=== PATIENT | male | born 1945 | race Caucasian/White ===

== ENCOUNTER → 2017-05-14 | Outpatient (CLI) | payer BC ==
[~2017-05-14] MED LIST: CLIN300C10 PO; FEXO1TAB46 PO; GABA-113 PO
[2017-05-14 12:29] LABS: BASO % 0.2 %; BASO ABS # 0.01 K/uL (0-0.2); COMPLETE YES; EOS % 5.1 %; HEMATOCRIT 49.1 % (42-52); IG% 0.3 %; LYMPH % 26.2 %; LYMPH ABS # 1.68 K/uL (1.2-3.4); MEAN CELL VOLUME 89.1 fL (80-100); MEAN CORPUSCULAR HEMOGLOBIN 30.7 pg (25-34); MEAN CORPUSCULAR HGB CONC 34.4 g/dl (32-36); MEAN PLATELET VOLUME 10.9 fL (7.4-10.4); MONO % 9.3 %; NEUT % 58.9 %; PLATELET COUNT 228 K/uL (130-400); RED BLOOD COUNT 5.51 M/uL (4.7-6.1); WHITE BLOOD COUNT 6.42 K/uL (4.8-10.8)
[2017-05-14 12:54] LABS: AST/SGOT 16 U/L (15-37); BLOOD UREA NITROGEN 15 mg/dl (7-18); BUN/CREATININE RATIO 12.7 (10-20); CARBON DIOXIDE 27 mmol/L (21-32); CHLORIDE 107 mmol/L (98-107); CHOLESTEROL 147 mg/dl (0-200); GLUCOSE 94 mg/dl (70-99); POTASSIUM 4.2 mmol/L (3.5-5.1); SODIUM 141 mmol/L (136-145)
[2017-05-14 12:59] LABS: ALKALINE PHOSPHATASE 60 U/L (45-117); ALT/SGPT 21 U/L (12-78); CHOLESTEROL/HDL RATIO 2.1; HDL CHOLESTEROL 70 mg/dl; LDL CHOLESTEROL CALCULATED 61 mg/dl; PROSTATE SPECIFIC ANTIGEN 0.928 ng/ml (0.000-4.000); TRIGLYCERIDES 82 mg/dl (0-150); VERY LOW DENSITY LIPOPROT CALC 16 mg/dl
== END | disposition home or self-care (01) ==
LOC: C.LABBFT 07:23
PROVIDERS: ATTEND Internal Medicine
DX: E78.5 Hyperlipidemia, unspecified (principal); Z12.5 Encounter for screening for malignant neoplasm of prostate; R73.01 Impaired fasting glucose

== ENCOUNTER → 2017-12-30 | Day surgery (SDC) | payer BC ==
[2017-12-20 07:48] VITALS: Ht 177.8 cm; Wt 115.5 kg
[~2017-12-30] VITALS: Ht 177.8 cm; Wt 115.5 kg
[~2017-12-30] MED LIST changes: +ASPI15TA PO; +DOXY50CA26 PO; -FEXO1TAB46 PO; +IOPAMIDOL INJ 61% 15 ML VIAL ONE; +LIDOCAINE HCL 1% MPF 5 ML VIAL ONE; +SENNTAB23 PO; +SODIUM CHLORIDE 0.9% INJ 10 ML VIAL ONE; +XYZAL PO
--- NOTE | 2017-12-30 13:46 | History & Physical Bridge - [place] ---
H&P Re-Evaluation Bridge Note: I have examined the patient, reviewed the History & Physical and in the interval since the performance of the History & Physical I have noted the following changes of clinical significance: No changes noted
--- NOTE | 2017-12-30 14:08 | [facility] Post Operative Brief Note ---
Immediate Operative Summary Operative Date December 30, 2017. 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 Kandis CERRATO Hydrology Teacher Surgeon(s) None Estimated Blood Loss 0 Findings Consistent with Post-Op Diagnosis Specimens NA Anesthesia Type Local Disposition Disposition:
--- NOTE | 2017-12-30 14:09 | Discharge Instructions ---
Discharge Instructions Date of Service December 30, 2017. Visit Reason for Visit: Lumbar Radiculopathy, Spinal Stenosis Discharge Discharge Diagnosis / Problem: left leg pain Discharge Goals Goal(s): Decrease discomfort, Improve function Medications Stopped Medications Name(s): no anti coags Activity Recommendations Activity Limitations: resume your previous activity Anesthesia . Post Anesthesia Instructions: If you have had General Anesthesia or IV Sedation: * Do not drive today. * Resume driving when surgeon permits. * Do not make important decisions or sign legal documents today. * Call surgeon for: 1. Temperature elevations greater than 101 degrees F. 2. Uncontrollable pain. 3. Excessive bleeding. 4. Persistent nausea and vomiting. 5. Medication intolerance (nausea, vomiting or rash). * For nausea and vomiting use only clear liquids such as: tea, soda, bouillon until nausea subsides, then gradually increase diet as tolerated. * If you have any concerns or questions, call your surgeon's office. If physician is unavailable and it is an emergency, call 911 or go to the nearest emergency room. . Diet Recommendations Recommended Home Diet: resume previous diet Procedures Procedures Performed: LUMBAR EPIDURAL STEROID INJECTION Pending Studies Studies pending at discharge: no Medical Emergencies . Who to Call and When: Medical Emergencies: If at any time you feel your situation is an emergency, please call 911 immediately. . Non-Emergent Contact Non-Emergency issues call your: Specialist . . "Provider Documentation" section prepared by Francisco Anand. .
[2017-12-30 14:52] VITALS: BP 165/94; PULSE 58; TEMP 36.6; O2SAT 96
--- NOTE | 2017-12-30 15:47 | OPERATIVE REPORT ---
DATE OF OPERATION: 12/30/2017 PREOPERATIVE DIAGNOSIS: Lumbar foraminal stenosis with a left L5 radiculopathy. POSTOPERATIVE DIAGNOSIS: Lumbar foraminal stenosis with a left L5 radiculopathy. PROCEDURE: Left paramedian L5-S1 intralaminar epidural steroid injection under fluoroscopic guidance. INDICATIONS: The patient is a 72-year-old white male who underwent an epidural steroid injection in 2012 and 2014, reports the pain has returned a few months ago. He is requesting an epidural injection. He has responded favorably to the epidural injections and presents today for an injection. PHYSICAL EXAMINATION: GENERAL: Pleasant male, seated comfortably. MUSCULOSKELETAL: Lumbar paraspinal muscles were palpated and noted be nontender. He had no issues with forward flexion, extension reproduced axial back pain. He had some sciatic notch sensitivity on the left. He had normal lower extremity strength. Negative seated straight leg raises, intact sensation distally at the L4, L5, S1 dermatomes. CONSENT: Verbal and written consent was obtained from the patient. Risks and benefits were reviewed. Risks include but are not limited to epidural abscess, epidural hematoma, allergic reaction, dural puncture. The patient wishes to proceed. DESCRIPTION OF PROCEDURE: The patient was taken back to the special procedures room of [facility] where he was maintained in a prone position. Backside was cleansed with Betadine x3 and a dry sterile dressing was applied. Fluoroscope was used to identify the L5-S1 intralaminar space. Overlying skin on the left side was anesthetized with 4 mL of lidocaine 1% with a 25 gauge 1.5-inch needle. A 22 gauge 4-1/4 inch Tuohy needle was then directed down towards the intralaminar space. It was advanced under lateral fluoroscopic guidance and loss of resistance was noted at a depth of 11 cm. Isovue-300 contrast 1 mL was injected in, which indicated epidural uptake flow. He then underwent injection after negative aspiration of 40 mg Depo-Medrol and 4 mL of preservative free sodium chloride. Injection was well tolerated and reproduced a familiar pressure sensation into the buttocks and hip area. DISPOSITION: 1. The patient is taken out into the discharge recovery area where he will be discharged home once discharge criteria are met. 2. Follow up in the [facility] office in 2-4 weeks. I attest to the content of the Intraoperative Record and any orders documented therein. Any exception s are noted below.
== END | disposition home or self-care (01) ==
LOC: X.SURG 12:57
PROVIDERS: ATTEND Physical Medicine & Rehabilitation
DX: M48.061 Spinal stenosis, lumbar region without neurogenic claudication (principal); M54.16 Radiculopathy, lumbar region

== ENCOUNTER 2021-03-23 05:40 | Inpatient (IN) ==
--- NOTE | 2021-03-16 15:09 | Anesthesiology Consultation ---
Date of Service March 16, 2021 Assessment & Plan (1) Encounter for pre-operative examination: Chart Review Chart Review: Acceptable Risk for Surgery and Patient NOT seen in Pre Admission Testing History Surgery Operation Date: 03/23/21 12:50 Proposed Procedures p C4-C5 Anterior Cervical Discectomy and Fusion Autograft, Allograft, Spinal Cord Monitoring - Alfredo Soto MD Height/Weight Height: 5 ft 9 in Weight: 116.12 kg Allergies Allergy/AdvReac Type Severity Reaction Status Date / Time adhesive Allergy Unknown RASH, Verified 03/16/21 13:59 LOCAL SWELLING UNDER ADHESIVE Penicillins Allergy Unknown RASH, Verified 03/16/21 13:59 REDNESS pollen extracts Allergy Unknown ITCHY Verified 03/16/21 13:59 tapentadol Allergy Unknown rash all Verified 03/16/21 13:59 over body Dust Allergy Unknown ITCHY Uncoded 03/16/21 13:59 Medications Home Medications Medication Instructions Recorded Confirmed Last Taken levocetirizine 5 mg tablet (Xyzal) 5 mg PO QAM 06/17/19 03/16/21 02/27/21 06:00 ascorbic acid (vitamin C) 1,000 mg 1,000 mg PO QAM 12/09/20 03/16/21 02/26/21 tablet,extended release clindamycin HCl 300 mg capsule 600 mg PO UD PRN cap 12/09/20 03/16/21 Unknown gabapentin 300 mg capsule 300 mg PO TID #270 cap 12/19/20 03/16/21 02/26/21 losartan 100 mg tablet 100 mg PO QAM 02/20/21 03/16/21 02/27/21 06:00 vitamin E 400 unit tablet 400 unit PO DAILY 02/20/21 03/16/21 02/26/21 amlodipine 5 mg tablet 5 mg PO BID #180 tab 03/15/21 03/16/21 Unknown Past Medical History Medical History BPH (benign prostatic hyperplasia) Diverticulosis of colon Environmental allergies Eye problem VEIN COLLAPSE IN RT EYE (INJECTIONS PRN), LAST INJECTION 11/2020 dr alicia HTN (hypertension) Osteoarthritis Pinched nerve in neck Shingles hx of shingles --CAUSED NERVE DAMAGE IN SHOULDER (REASON FOR TAKING GABAPENTIN) Spinal stenosis s/p epidural injecton Past Family History Family History Father Amyloidosis Hypertension Brother Hypertension Sigmoid polyp Mother Stroke Other No significant family history Denies family history of Ovarian cancer Prostate cancer Myocardial infarction Breast cancer Colorectal cancer Past Surgical History Surgical History History of anesthesia reaction URINARY RETENTION WITH KAT History of arthroscopy RT KNEE History of cataract surgery BOTH EYES History of colonoscopy (03/2016) one tubular adenoma and one hyperplastic polyp, recheck in 5 years, Case History of esophagogastroduodenoscopy (EGD) History of tooth extraction History of total hip arthroplasty RT Hx of transurethral resection of prostate Social History Smoking Status: Former smoker tobacco type: cigarettes Smoking cigarettes per day: 20 Do You Dip or Chew Tobacco: No Smoking End Date: 2007 Hx Alcohol Use: Yes Alcohol type: beer alcohol intake frequency: a few times a week Hx Substance Use: No substance use type: does not use Testing Electrocardiogram Date: 03/15/21 Sinus bradycardia Otherwise normal ECG When compared with ECG of 16-JUN-2014 15:15, No significant change was found Other Testing Laboratory Tests 12/05/20 03/15/21 08:42 12:09 WBC 6.32 Hgb 15.7 Hct 45.6 Plt Count 239 Sodium 137 Potassium 4.1 Chloride 106 Carbon Dioxide 25 BUN 13 Creatinine 1.16 Glucose 97
[2021-03-23] MEDS ORDERED: ceFAZolin 2000MG 2,000 MG/15 ML SYR IV SCH (06:00)
[2021-03-23] MEDS ORDERED: LR 15ML/HR IV SCH (06:00)
[2021-03-23] MEDS ORDERED: PROPOFOL IV EMULSION 10 MG/ML 100 ML VIAL IV ONE ×3 (06:21→09:00)
[2021-03-23] MEDS ORDERED: ONDANSETRON INJ 2 MG/ML 2 ML VIAL ONE (06:34)
[2021-03-23] MEDS ORDERED: HYDROmorphone INJ 2 MG/ML SYR/VIAL ONE (06:34)
[2021-03-23] MEDS ORDERED: SUCCINYLCHOLINE CHLORIDE 20 MG/ML 10 ML VIAL IV ONE (06:34)
[2021-03-23] MEDS ORDERED: PROPOFOL IV EMULSION 10 MG/ML 20 ML VIAL IV ONE ×2 (06:34→10:16)
[2021-03-23] MEDS ORDERED: fentaNYL citrate 100 MCG/2 ML VIAL ONE ×2 (06:34→09:41)
[2021-03-23] MEDS ORDERED: DEXAMETHASONE SOD INJ 4 MG/ML VIAL ONE (06:34)
[2021-03-23] MEDS ORDERED: KETAMINE 50 MG/5 ML SYRINGE ONE (06:34)
[2021-03-23] MEDS ORDERED: MIDAZOLAM HCL 1 MG/ML 2ML VIAL ONE (06:34)
[2021-03-23] MEDS ORDERED: ACETAMINOPHEN 1000 MG/100 ML IV IV ONE (06:48)
[2021-03-23] MEDS ORDERED: ceFAZolin 2,000 MG/15 ML IV PUSH IV ONE (06:50)
--- NOTE | 2021-03-23 06:54 | History & Physical Bridge Note ---
Date of Service March 23, 2021 History & Physical Bridge Note I have examined the patient, reviewed the History & Physical and in the interval since the performance of the History & Physical I have noted the following changes of clinical significance: no changes noted New changes compared to last appointment: none Musculoskeletal: 5/5 motor strength bilateral C5-T1, L2-S1 except left C5 deltoid 2/5, biceps 4/5. Neurologic: Sensation 2/2 to light touch bilateral C5-T1, L2-S1 except left C5 1/2. Patient marked for surgery. All new questions about procedure answered. Informed consent confirmed
[2021-03-23] MEDS ORDERED: ATROPINE SULFATE 0.1 MG/ML 10ML SYR IV PRN (07:02)
[2021-03-23] MEDS ORDERED: PROMETHAZINE HCL 12.5 MG in SODIUM CHLORIDE 0.9% 50 ML IV PRN ×2 (07:02→13:12)
[2021-03-23] MEDS ORDERED: HYDROmorphone INJ 1 MG/ML SYRINGE IV PRN (07:02)
[2021-03-23] MEDS ORDERED: LABETALOL HCL IV 5 MG/ML 20ML IV PRN (07:02)
[2021-03-23] MEDS ORDERED: ONDANSETRON INJ 2 MG/ML 2 ML VIAL IV PRN ×2 (07:02→13:12)
[2021-03-23] MEDS ORDERED: GELATIN SPONGE 12-7MM ONE (07:24)
[2021-03-23] MEDS ORDERED: THROMBIN 5000 UNITS KIT ONE (07:24)
[2021-03-23] MEDS ORDERED: GLYCOPYRROLATE 0.2 MG/ML VIAL ONE (08:15)
[2021-03-23] MEDS ORDERED: FLOSEAL HEMOSTATIC MATRIX 10ML TOP ONE (10:35)
--- NOTE | 2021-03-23 11:14 | Post Operative Brief Note ---
PG Immediate Post Op with CF Date of Surgery March 23, 2021 Pre & Post Diagnosis Operation Date: 03/23/21 07:30 Pre-Op Diagnosis: left C5 cervical radiculopathy Post-Op Diagnosis: left C5 cervical radiculopathy I identified the patient and participated in the time-out.: Yes Procedure C4-C5 Anterior Cervical Discectomy and Fusion, Local Autograft, Allograft Surgeon Alfredo Soto MD Records Custodian Michele Sahu PA-C Estimated Blood Loss 25 Findings Consistent with Post-Op Diagnosis Specimens Specimen Description: none per surgeon Drains Giordano Catheter (A 16 British giordano catheter was inserted preop by Concetta Rodrigues, clear yellow urine obtained output to be montiored by Anesthesia. ) and Aaron- Wallis Drain (10 British)
--- NOTE | 2021-03-23 11:24 | XRay Report ---
XR cervical spine 2 or 3V CLINICAL HISTORY: ACDF C4-C5 COMPARISON STUDY: Cervical spine 01/13/2021. FINDINGS: 4 intraoperative lateral views of the cervical spine were submitted for review. Initial celine ges demonstrate a needle overlying the C4-C5 disc space. This is followed by C4-C5 ACDF. The hardware appears intact. A surgical sponge is noted at the prevertebral location. Nasogastric tube and endotr acheal tubes are partially visualized. IMPRESSION: Intraoperative images for C4-C5 ACDF. The hardware appears intact. ACT 112: Negative or not required by law. Electronically signed by: Law Turpin M.D. 03/23/2021 11:22 AM
--- NOTE | 2021-03-23 12:28 | Anesthesiology Progress Note ---
Date of Service March 23, 2021 Anesthesia Post Procedure Vital Signs Vital Signs: Temp Pulse Pulse Resp BP BP Pulse Ox 03/23/21 12:20 36.6 C 93 H 19 144/84 H 94 03/23/21 12:10 90 12 158/97 H 94 03/23/21 12:00 85 12 135/85 96 03/23/21 11:50 88 12 153/81 H 96 03/23/21 11:40 87 17 152/90 H 97 03/23/21 11:31 36.5 C 87 12 153/90 H 94 03/23/21 06:09 36.7 C 79 20 136/95 97 Pain Intensity Left Arm: Pain Intensity: 1 Transfer of Care Handoff Completed per policy Notes Mental Status: alert / awake / arousable Patient Amnestic to Procedure: Yes Nausea / Vomiting: adequately controlled Pain: adequately controlled Airway Patency, RR, SpO2: stable & adequate BP & HR: stable & adequate Hydration State: stable & adequate Anesthetic Complications: no major complications apparent
[2021-03-23] MEDS ORDERED: methylPREDNISolone 250 MG in SYRINGE 0 ML IV SCH (12:30)
[2021-03-23] MEDS ORDERED: LORazepam 0.5 MG TAB PO PRN (13:12)
[2021-03-23] MEDS ORDERED: NALOXONE HCL 0.4 MG/1 ML VIAL/CARP IV PRN (13:12)
[2021-03-23] MEDS ORDERED: FAMOTIDINE 20 MG TAB PO PRN (13:12)
[2021-03-23] MEDS ORDERED: SOD PHOSPHATE/SOD BIPHOSPHATE ENEMA 132 ML BTL PR PRN (13:12)
[2021-03-23] MEDS ORDERED: dexAMETHasone 8 MG in SYRINGE 0 ML IV PRN (13:12)
[2021-03-23] MEDS ORDERED: MAGNESIUM HYDROXIDE SUSP 30 ML UDC PO PRN (13:12)
[2021-03-23] MEDS ORDERED: LORazepam 0.5 MG/1 ML VIAL IV PRN (13:12)
[2021-03-23] MEDS ORDERED: ACETAMINOPHEN 1,000 MG/100 ML VIAL IV PRN (13:12)
[2021-03-23] MEDS ORDERED: HYDROmorphone INJ 0.5 MG/0.5 ML SYR IV PRN (13:12)
[2021-03-23] MEDS ORDERED: ACETAMINOPHEN 500 MG TAB PO PRN (13:12)
[2021-03-23] MEDS ORDERED: HYDROCODONE/ACETAMOPHEN 5/325MG TAB PO PRN (13:12)
[2021-03-23] MEDS ORDERED: bisacodyL 10 MG SUPP PR PRN (13:12)
[2021-03-23] MEDS ORDERED: DO NOT ADMINISTER FLU VACCINE PRN (13:12)
[2021-03-23] MEDS ORDERED: hydrOXYzine HCl 25 MG TAB PO PRN (13:12)
[2021-03-23] MEDS ORDERED: DO NOT ADMINISTER PNEUMOCOCCAL VACCINE PRN (13:12)
[2021-03-23] MEDS ORDERED: diphenhydrAMINE Capsule 25 MG CAP PO PRN (13:12)
[2021-03-23] MEDS ORDERED: METOCLOPRAMIDE HCL INJ 5 MG/ML 2 ML VIAL IV PRN (13:12)
[2021-03-23] MEDS ORDERED: ONDANSETRON 4 MG OD TAB PO PRN (13:12)
[2021-03-23] MEDS ORDERED: ALUMINUM/MAGNESIUM SUSP 30 ML UDC PO PRN (13:12)
[2021-03-23] MEDS ORDERED: RACEPINEPHRINE 2.25% NEBU SOLN 0.5 ML VIAL INH PRN (13:12)
--- NOTE | 2021-03-23 13:20 | Anesthesiology Progress Note ---
Date of Service March 23, 2021 Anesthesia Post Procedure Vital Signs Vital Signs: Temp Pulse Pulse Resp BP BP Pulse Ox 03/23/21 12:50 91 H 18 142/81 H 94 03/23/21 12:40 89 16 143/89 H 94 03/23/21 12:30 94 H 19 148/89 H 95 03/23/21 12:20 36.6 C 93 H 19 144/84 H 94 03/23/21 12:10 90 12 158/97 H 94 03/23/21 12:00 85 12 135/85 96 03/23/21 11:50 88 12 153/81 H 96 03/23/21 11:40 87 17 152/90 H 97 03/23/21 11:31 36.5 C 87 12 153/90 H 94 03/23/21 06:09 36.7 C 79 20 136/95 97 Pain Intensity Left Arm: Pain Intensity: 1 Throat: Pain Intensity: 4 Transfer of Care Handoff Completed per policy Notes Mental Status: alert / awake / arousable Patient Amnestic to Procedure: Yes Nausea / Vomiting: adequately controlled Pain: adequately controlled Airway Patency, RR, SpO2: stable & adequate BP & HR: stable & adequate Hydration State: stable & adequate Anesthetic Complications: no major complications apparent
--- NOTE | 2021-03-23 13:55 | Hospitalist Consultation ---
Date of Consultation March 23, 2021 Assessment & Plan (1) Radiculopathy, cervical region: Failing outpatient therapy patient underwent C4-5 anterior cervical discectomy and fusion on March 23, 2021 (2) Hypertension: Patient continues on amlodipine 5 twice daily and losartan for hypertensive control will watch for postoperative hypotension especially with an angiotensin receptor danny History of Present Illness Attending Physician: Alfredo Soto MD History of Present Illness Patient underwent C4-5 anterior cervical discectomy and fusion with autograft by Dr. Soto March 23, 2021. Mr. Greene is a generally healthy gentleman taking amlodipine 5 mg twice daily and losartan 100, for hypertension, antihistamines for allergic rhinitis gabapentin for neuropathy which may be influenced by his cervical spine disease. Preoperative laboratory testing appears to be stable. pt notices gradual improvement of left arm strenght which was his pre operative defecit and he has resolution of his pain Allergies Allergy/AdvReac Type Severity Reaction Status Date / Time adhesive Allergy Unknown RASH, Verified 03/23/21 06:06 LOCAL SWELLING UNDER ADHESIVE Penicillins Allergy Unknown RASH, Verified 03/23/21 06:06 REDNESS pollen extracts Allergy Unknown ITCHY Verified 03/23/21 06:06 tapentadol Allergy Unknown rash all Verified 03/23/21 06:06 over body Dust Allergy Unknown ITCHY Uncoded 03/23/21 06:06 Home Medications Medication Instructions Recorded Confirmed Type levocetirizine 5 mg tablet (Xyzal) 5 mg PO QAM 06/17/19 03/23/21 History ascorbic acid (vitamin C) 1,000 mg 1,000 mg PO QAM 12/09/20 03/23/21 History tablet,extended release clindamycin HCl 300 mg capsule 600 mg PO UD PRN cap 12/09/20 03/23/21 History gabapentin 300 mg capsule 300 mg PO TID #270 cap 12/19/20 03/23/21 Rx losartan 100 mg tablet 100 mg PO QAM 02/20/21 03/23/21 History vitamin E 400 unit tablet 400 unit PO DAILY 02/20/21 03/23/21 History amlodipine 5 mg tablet 5 mg PO BID #180 tab 03/15/21 03/23/21 Rx Patient History Medical History (Updated 03/23/21 @ 13:53 by Festus Castano MD) BPH (benign prostatic hyperplasia) Diverticulosis of colon Environmental allergies Eye problem VEIN COLLAPSE IN RT EYE (INJECTIONS PRN), LAST INJECTION 11/2020 dr alicia HTN (hypertension) Lyme disease Osteoarthritis Pinched nerve in neck Shingles hx of shingles --CAUSED NERVE DAMAGE IN SHOULDER (REASON FOR TAKING GABAPENTIN) Spinal stenosis s/p epidural injecton Surgical History History of anesthesia reaction URINARY RETENTION WITH KAT History of arthroscopy RT KNEE History of cataract surgery BOTH EYES History of colonoscopy (03/2016) one tubular adenoma and one hyperplastic polyp, recheck in 5 years, Dr Puente History of esophagogastroduodenoscopy (EGD) History of tooth extraction History of total hip arthroplasty RT Hx of transurethral resection of prostate Family History Father Amyloidosis Hypertension Brother Hypertension Sigmoid polyp Mother Stroke Other No significant family history Denies family history of Ovarian cancer Prostate cancer Myocardial infarction Breast cancer Colorectal cancer Social History Smoking Status: Former smoker Tobacco Type: Cigarettes Age Started Using Tobacco: 21; Age Quit Using Tobacco: 63; packs per day: 1; Years Smoked: 63; Cigarettes Per Day: 20; Smoking End Date: 2007; Number of Years Since Quit: 201; Second Hand Exposure: No; Do You Dip or Chew Tobacco: No; Tobacco Cessation Education Requested by Patient: No Hx Alcohol Use: Yes Alcohol type: beer Alcohol Intake Frequency: 4 or More x per/Week Alcohol Intake Frequency Comment: 1 or 2 drinks a day Hx Substance Use: No Preferred Language: Haitian Communication Ability: Effective Visual Impairment: No Limitations Hearing Ability: Normal Motion Picture Film Examiner Required: No Beliefs That Will Affect Care: None marital status: / Current Living Situation: Alone current occupational status: retired Other Information That Helps Us Care for You: No Feels Safe at Home: Yes Safety Concerns: Feels Safe At This Time Childhood Exposure to Second-Hand Smoke: No Dental Care, Regularly: Yes Physical Activity Frequency: 3-4 Times per Week Physical Activity Frequency Comment: golfing, walking 2 hours Seatbelt Use: always Sunscreen Use: Yes Assistive Devices: Glasses Review of Systems Review of Systems: Mild distress and fatigue no headache, no visual changes no speech or swallowing issues no chest pain, pressure or palpitations no shortness of breath, cough or wheezes no abdominal pain, nausea or vomiting, diarrhea or constipation no dysuria, hematuria or frequency no focal joint pain or swelling no back pain, CVA tenderness or radicular pain no bruising, bleeding or rashes focal weakness of left proximal arm no complaints of anxiety or depression.. Physical Exam Physical Exam: The patient appeared well nourished and normally developed. Vital signs as documented. Head exam is normocephalic atraumatic Neck is without JVD, thyromegaly, or carotid bruits. Lungs are clear to auscultation, no focal loss of breath sounds Cardiac exam, Rhythm is regular.. No murmurs, rubs or gallops. Abdominal exam reveals normal bowel sounds, soft non tender, no masses Extremities are nonedematous and both pedal pulses are present Neurologic exam is alert and oriented, weakness of bicep and shoulder but sensation intact Skin is without bruises or rashes Psychologically is without concerns for anxiety or depression Results & Data Results & Data ([facility]) Vital Signs (Past 12 Hours) Vital Signs Temp Pulse Pulse Resp BP BP Pulse Ox 03/23/21 13:30 97.7 F 89 18 137/79 96 03/23/21 13:16 89 18 95 03/23/21 13:00 97.9 F 88 16 148/89 H 93 03/23/21 12:50 91 H 18 142/81 H 94 03/23/21 12:40 89 16 143/89 H 94 03/23/21 12:30 94 H 19 148/89 H 95 03/23/21 12:20 97.9 F 93 H 19 144/84 H 94 03/23/21 12:10 90 12 158/97 H 94 03/23/21 12:00 85 12 135/85 96 03/23/21 11:50 88 12 153/81 H 96 03/23/21 11:40 87 17 152/90 H 97 03/23/21 11:31 97.7 F 87 12 153/90 H 94 03/23/21 06:09 98.1 F 79 20 136/95 97 PG Care Time/CCT Total # of Minutes Spent Total Time Spent with Patient: Total time spent is greater than 50% in coordination of care (as documented) at patient's floor/unit and/or counseling patient: Coding Level of Care Code 13850 Inpt Consult Level 2 Diagnoses Hypertension I10 Radiculopathy, cervical region M54.12
[2021-03-23] MEDS: METHYLPREDNISOLONE IV SCH ×2 (14:10→18:43)
[2021-03-23] MEDS: DEXTROSE 5% IV SCH ×2 (14:10→18:43)
[2021-03-23] MEDS: LACTATED RINGER'S 1,000 ML IV SCH ×2 (14:15→23:03)
[2021-03-23] MEDS: GABAPENTIN 300 MG CAP PO SCH ×2 (15:23→20:08)
[2021-03-23] MEDS: ceFAZolin 2000MG 2,000 MG/15 ML SYR IV SCH ×2 (17:09→23:03)
[2021-03-23] MEDS: DOCUSATE SODIUM/SENNA 50/8.6MG TAB PO SCH (20:08)
[2021-03-23] MEDS: amLODIPine BESYLATE 5 MG TAB PO SCH (20:08)
[2021-03-24] MEDS: METHYLPREDNISOLONE IV SCH ×2 (01:01→06:33)
[2021-03-24] MEDS: DEXTROSE 5% IV SCH ×2 (01:01→06:33)
[2021-03-24] MEDS: POLYETHYLENE (MIRALAX) 17 GM PACK PO SCH ×3 (05:08→19:13)
--- NOTE | 2021-03-24 07:01 | Orthopedic Progress Note ---
Date of Service March 24, 2021 Assessment & Plan (1) Status post spinal surgery: Plan: upright x-rays when able drain to be monitored today, possibly removed in PM d/c home likely tomorrow Admission and Anticipated Discharge Date Admission Date: March 23, 2021 Subjective patient very pleased with resolution of symptoms no new numbness/weakness resolved numbness left lateral shoulder no hoarseness no dysphagia. Drinking well/eating well, has not tried solids yet pain well-controlled no radicular symptoms to left shoulder Hgb pending this AM Glucose 122 this AM Physical Exam Physical Exam: vitals: see vital signs section; on RA this AM neck: soft, non-distended dressing: clean, dry, intact drain: 15 cc/8hr vascular: no calf tenderness or swelling bilaterally. no signs of DVT neuro: Musculoskeletal: 5/5 motor strength bilateral C5-T1, L2-S1 except left C5 deltoid 2/5, biceps 4/5. Neurologic: Sensation 2/2 to light touch bilateral C5-T1, L2-S1 (resolved left C5 numbness) Results & Data ([facility]) Vital Signs (Past 12 Hours) Vital Signs Temp Pulse Pulse Resp BP BP Pulse Ox 03/24/21 06:30 36.4 C L 76 18 156/86 H 94 03/24/21 05:00 36.5 C 71 18 147/84 H 95 03/24/21 03:00 36.5 C 75 18 135/81 95 03/24/21 01:00 36.5 C 75 16 133/82 95 03/23/21 23:27 77 18 96 03/23/21 23:00 36.4 C L 84 16 130/82 96 03/23/21 21:00 36.6 C 77 18 146/83 H 96 03/23/21 19:39 72 18 97 03/23/21 19:03 36.4 C L 86 16 129/76 97 Diagnostic Findings post-op x-ray cervical spine pending PG Care Time/CCT Total # of Minutes Spent Total Time Spent with Patient: Total time spent is greater than 50% in coordination of care (as documented) at patient's floor/unit and/or counseling patient: Coding Level of Care Code None Diagnoses Status post spinal surgery Z98.890
--- NOTE | 2021-03-24 08:22 | XRay Report ---
XR cervical spine 2 or 3V HISTORY: 76 years-old Male post-op spine surgery; upright COMPARISON: 03/23/2021 TECHNIQUE: 2 views of the cervical spine FINDINGS: Anterior plate and screw fusion with discectomy at C4-C5. Mild multilevel intervertebral disc space n arrowing and spondylitic spurring with moderate facet arthrosis. Hardware appears intact. No acute fr acture or malalignment identified. Mild prevertebral soft tissue prominence is likely postsurgical. A ssociated surgical drainage catheter is present. IMPRESSION: Expected postoperative changes status post discectomy with anterior plate and screw fusio n at C4-C5. ACT 112: Negative or not required by law. The above report was generated using voice recognition software. It may contain grammatical, syntax o r spelling errors. Electronically signed by: Galileo Santos M.D. 03/24/2021 8:21 AM
[2021-03-24] MEDS: amLODIPine BESYLATE 5 MG TAB PO SCH ×2 (08:30→19:29)
[2021-03-24] MEDS: LOSARTAN POTASSIUM 50 MG TAB PO SCH (08:30)
[2021-03-24] MEDS: GABAPENTIN 300 MG CAP PO SCH ×3 (08:30→19:29)
[2021-03-24] MEDS: ASCORBIC ACID 500 MG TAB PO SCH (08:31)
[2021-03-24] MEDS: TOCOPHERYL, DL-ALPHA 400 UNITS 180 MG CAP PO SCH (08:31)
[2021-03-24 08:45] LABS: Hematocrit (blood only) 46.1 % (42-52); Hemoglobin 16.1 g/dL (14.0-18.0); Immature Granulocytes # (auto) 0.02 K/uL (0.00-0.02); Immature Granulocytes % (auto) 0.2 %; Mean Corpuscular Hemoglobin 32.3 pg (25-34); Mean Corpuscular Hgb Conc 34.9 g/dL (32-36); Mean Corpuscular Volume 92.4 fL (80-100); Mean Platelet Volume 9.3 fL (7.4-10.4); Monocytes # (auto) 0.19 K/uL (0.11-0.59); Monocytes % (auto) 1.6 %; Neutrophils # (auto) 11.28 K/uL (1.4-6.5); Neutrophils % (auto) 93.2 %; Platelet Count 245 K/uL (130-400); RDW Coefficient of Variation 13.6 % (11.5-14.5); Red Blood Count 4.99 M/uL (4.7-6.1); White Blood Count 12.09 K/uL (4.8-10.8)
[2021-03-24 09:21] LABS: Calcium 9.2 mg/dl (8.5-10.1); Creatinine Clr Calc Pharmacy 69.7 ml/min; Est GFR (Non-African American) 62.1 ml/min; Potassium 4.1 mmol/L (3.5-5.1)
--- NOTE | 2021-03-24 17:23 | Hospitalist Progress Note ---
Date of Service March 24, 2021 Assessment & Plan (1) Radiculopathy, cervical region: Plan: Failing outpatient therapy patient underwent C4-5 anterior cervical discectomy and fusion on March 23, 2021 (2) Hypertension: Plan: Blood pressure controlled on amlodipine 5 twice daily and losartan (3) Leukocytosis: Plan: Secondary to likely stress and also steroid administration causing demargination of white blood cells. (4) Sore throat: Plan: Oropharynx was inspected there was no thrush there is minor erythema but this looks more mechanical than infectious Admission and Anticipated Discharge Date Admission Date: March 23, 2021 Subjective Patient doing well having no hoarseness of voice or difficulty swallowing. Left arm is improved with every day his proximal muscles are the weak area Does have some irritation of his throat will try some Biotene spray Review of Systems Review of Systems: Mild distress and fatigue no headache, no visual changes no speech or swallowing issues no chest pain, pressure or palpitations no shortness of breath, cough or wheezes no abdominal pain, nausea or vomiting, diarrhea or constipation no dysuria, hematuria or frequency no focal joint pain or swelling no back pain, CVA tenderness or radicular pain no bruising, bleeding or rashes focal weakness of left proximal arm no complaints of anxiety or depression.. Physical Exam Physical Exam: The patient appeared well nourished and normally developed. Vital signs as documented. Head exam is normocephalic atraumatic Neck is without JVD, thyromegaly, or carotid bruits. Lungs are clear to auscultation, no focal loss of breath sounds Cardiac exam, Rhythm is regular.. No murmurs, rubs or gallops. Abdominal exam reveals normal bowel sounds, soft non tender, no masses Extremities are nonedematous and both pedal pulses are present Neurologic exam is alert and oriented, weakness of bicep and shoulder but sensation intact Skin is without bruises or rashes Psychologically is without concerns for anxiety or depression Results & Data Results & Data ([facility]) Vital Signs (Past 12 Hours) Vital Signs Temp Pulse Resp BP BP Pulse Ox 03/24/21 15:57 73 16 97 03/24/21 15:04 98.1 F 74 16 136/79 95 03/24/21 12:45 98.8 F 75 16 130/72 93 03/24/21 12:05 80 16 95 03/24/21 10:30 98.6 F 77 16 124/69 97 03/24/21 08:26 98.4 F 83 18 145/74 H 95 03/24/21 06:30 97.5 F L 76 18 156/86 H 94 PG Care Time/CCT Total # of Minutes Spent Total Time Spent with Patient: Total time spent is greater than 50% in coordination of care (as documented) at patient's floor/unit and/or counseling patient: Coding Level of Care Code 68094 Subseq Hosp Care Lvl 2 Diagnoses Radiculopathy, cervical region M54.12 Hypertension I10 Leukocytosis D72.829 Sore throat J02.9
[2021-03-24] MEDS: DOCUSATE SODIUM/SENNA 50/8.6MG TAB PO SCH (19:29)
[2021-03-25] MEDS: GABAPENTIN 300 MG CAP PO SCH (09:20)
[2021-03-25] MEDS: amLODIPine BESYLATE 5 MG TAB PO SCH (09:20)
[2021-03-25] MEDS: LOSARTAN POTASSIUM 50 MG TAB PO SCH (09:20)
[2021-03-25] MEDS: TOCOPHERYL, DL-ALPHA 400 UNITS 180 MG CAP PO SCH (09:21)
[2021-03-25] MEDS: ASCORBIC ACID 500 MG TAB PO SCH (09:21)
--- NOTE | 2021-03-25 11:29 | Orthopedic Progress Note ---
Date of Service March 25, 2021 Assessment & Plan (1) Status post spinal surgery: Plan: d/c home today f/u 2 weeks (patient will be contacted with regards to this) Admission and Anticipated Discharge Date Admission Date: March 23, 2021 Subjective no new numbness/weakness resolved numbness left lateral shoulder no hoarseness no dysphagia. Drinking well/eating well pain well-controlled no radicular symptoms to left shoulder Physical Exam Physical Exam: vitals: see vital signs section; on RA this AM neck: soft, non-distended dressing: clean, dry, intact drain: removed vascular: no calf tenderness or swelling bilaterally. no signs of DVT neuro: Musculoskeletal: 5/5 motor strength bilateral C5-T1, L2-S1 except left C5 deltoid 2/5, biceps 4/5. Neurologic: Sensation 2/2 to light touch bilateral C5-T1, L2-S1 (resolved left C5 numbness) Results & Data ([facility]) Vital Signs (Past 12 Hours) Vital Signs Temp Pulse Resp BP Pulse Ox 03/25/21 08:17 67 16 97 03/25/21 06:05 36.5 C 70 16 142/87 H 93 03/25/21 04:00 64 18 92 03/25/21 03:16 36.5 C 60 16 134/75 95 03/25/21 00:00 70 18 96 Diagnostic Findings AP and lateral cervical spine x-rays independently reviewed/interpreted. Findings: hardware in appropriate position PG Care Time/CCT Total # of Minutes Spent Total Time Spent with Patient: Total time spent is greater than 50% in coordination of care (as documented) at patient's floor/unit and/or counseling patient: Coding Level of Care Code None Diagnoses Status post spinal surgery Z98.890
--- NOTE | 2021-03-25 11:30 | Discharge Summary ---
Date of Service March 25, 2021 Principal Diagnosis cervical radiculopathy Discharge Data Allergies Allergy/AdvReac Type Severity Reaction Status Date / Time adhesive Allergy Unknown RASH, Verified 03/23/21 06:06 LOCAL SWELLING UNDER ADHESIVE Penicillins Allergy Unknown RASH, Verified 03/23/21 06:06 REDNESS pollen extracts Allergy Unknown ITCHY Verified 03/23/21 06:06 tapentadol Allergy Unknown rash all Verified 03/23/21 06:06 over body Dust Allergy Unknown ITCHY Uncoded 03/23/21 06:06 Consultations 03/23/21 13:12 Consult Hospitalist Routine Procedures Performed Operation Date: 03/23/21 07:30 Actual Procedures p C4-C5 Anterior Cervical Discectomy and Fusion Autograft, Allograft, Spinal Cord Monitoring(Not Applicable) - Alfredo Soto MD Hospital Course (1) Status post spinal surgery: Patient underwent the above mentioned procedure. There were no complications noted intra-op. Post-operatively, patient was sent to recovery and then floor. Pain was well-controlled throughout stay. Drain was removed on post- op day 1. Patient was followed closely by hospitalist service throughout stay and was cleared for discharge medically by this team. Patient was able to ambulate, void, and tolerate PO intake at time of discharge. Verbal discharge and follow-up instructions were given. Total Time Total Time Spent Total Time Spent (In Minutes): 25 Discharge Plan Discharge Items Patient Disposition: Home - Self-Care Reason For Visit: Cervical Radiculopathy Discharge Diagnosis: Cervical Radiculopathy Activity: Per Instructions section Non-emergency contact: Surgeon Call non-emergency contact if: you have any medication questions Follow-up/Referrals: Surya Britton III, MD [Primary Care Provider] - Diet: Regular Addtl Attending Provider Instructions: Anterior Cervical Decompression Fusion (ACDF) Recovery What to expect You've had surgery, the first step toward the goals of decreasing neck and/or arm pain, and stopping symptoms of spinal cord compression from getting worse. Now it's time to focus on healing. By following these tips, you will set yourself up for a successful outcome after surgery. Top 4 things to know 1. Pain in the back of the neck and between the shoulder blades is common after ACDF surgery. It also is normal to have some swallowing difficulty. These usually get better over the next few weeks. If you have trouble breathing, call 911 or go to an emergency room immediately. 2. Do not use nicotine for at least three months. Nicotine will slow down your healing. 3. Avoid taking anti-inflammatory medications (NSAIDs) for six to 12 weeks or until your surgeon tells you it's safe to use them. NSAIDs include ibuprofen (Motrin, Advib), naproxen (Aleve, Naprosyn), meloxicam (Mobic), Celebrex and diclofenac. 4. In some cases, you do not need a collar after surgery. If your surgeon gave you one, you should wear it as directed until your first follow-up appointment. Avoid excessive bending and twisting of your neck after surgery. Your surgeon will decide when your collar can come off. Breathing If you have any trouble breathing or have excessive swelling in your neck, call 911 or go to an emergency room immediately. Pain and weakness Neck pain, pain between the shoulder blades and a funny feeling when you swallow are normal after ACDF. These should get better over the next few weeks. Numbness, tingling and weakness that you had before surgery may take time to improve. Your collar If you were given a collar to wear, the goal of it is to keep your chin up and away from your chest. Your chin needs to be on top of the collar, not down in the collar. Wear your collar until your first follow-up appointment after surgery. You may take the collar off to shower. While the collar is off, keep your head as still as possible and your chin up. Taking care of your incision You can take your dressing off when you get home from the hospital. Underneath the dressing you will have adhesive wound closures (Steri-strips) over your incision when you come home from the hospital. These will fall off on their own within 14 days. If they have not fallen off after 14 days, you can remove them. If your incision has no drainage, it can be left uncovered after three days. Showering You can take a shower three days after surgery. Take your collar off while in the shower. Avoid taking tub baths, swimming and going in hot tubs until the incision is completely healed (four to six weeks). Taking medication Do not take anti-inflammatory medications (NSAIDS) for at least three months after surgery. These drugs can interfere with how you heal. NSAIDs include ibuprofen, Advil, Aleve, naproxen, Naprosyn, Mobic, meloxicam, Celebrex, diclofenac. If you need refills on your prescriptions, contact our office at least two days before you are out of pills so we have sufficient time to process your request. Refill requests on Saturday afternoons and holidays likely will be addressed on the next business day. Start weaning yourself from pain medications as soon as you are able. Remember, pain is a natural part of the healing process. The goal is not to eliminate all pain but to keep you comfortable as you heal. Pain medications should be used only for a short period of time. Before taking Tylenol (acetaminophen), be aware that your pain medication probably has acetaminophen in it. Taking additional Tylenol or acetaminophen can put you over the daily recommended 3,000 milligrams, which can harm your liver. If you are taking a muscle relaxer, one of the side effects is drowsiness. If you feel too drowsy to safely get up and move around, take the muscle relaxer less often. Do not use tobacco products If you had been a smoker or used tobacco, you were required to stop before surgery You've come this far, so why not quit for good. If you cannot do so, you must not use tobacco products for at least three months. Nicotine will keep you from properly healing If you have any other concerns, call our office at: before go ing to an emergency room. In most cases we can help you or get you an appointment quickly Be active, but no lifting We want you to be active as soon as you get home from the hospital. Get up and walk often. If you go up and down stairs, make sure you hold onto the railing and have someone with you. Avoid bending and twisting your neck as much as you can, and do not lift anything over 10 pounds until your surgeon says it's OK. And no driving You cannot drive until you are no longer taking narcotic pain medications or muscle relaxers and you can move well enough to be safe behind the wheel. Most patients can begin driving after the 6 week postoperative appointment. Your surgeon will let you know when you can start driving Eating Ice and Popsicles can help relieve a sore throat. Eat soft foods that are easy to swallow. Take small bites and chew your food well. You can begin eating other foods gradually as you start to feel better. Constipation and bloating Constipation is a common side effect of taking narcotic pain medication and a good reason to begin tapering yourself off of pain medication as soon as you can. Drink lots of fluids, be active and eat foods high in fiber to help relieve constipation If constipation is bothering you, a stool softener or laxative may help. Try one of the following, and always follow the instructions: Milk of Magnesia, MiraLAX, Dulcolax suppository. Fleet enema, magnesium citrate. When is it an emergency? If you have any of the following symptoms, call 911 or go to an emergency room right away: Trouble breathing Chest pain Excessive neck swelling Significant new weakness since your surgery If you have any other concern, call our office at [phone] before going to an emergency room. In most cases we can help you or get you an appointment quickly. Pending Studies at Discharge: No Stand-Alone Forms: My [facility] Medications and DC Order Prescriptions: New hydrocodone-acetaminophen 5-325 mg Tablet 1 - 2 tab PO Q4H PRN (Reason: pain) Qty: 30 RF: 0 hydrocodone-acetaminophen 5-325 mg tablet 1 tab PO Q4H PRN (Reason: pain) Qty: 20 RF: 0 Continued gabapentin 300 mg capsule 300 mg PO TID Qty: 270 RF: 3 amlodipine 5 mg tablet 5 mg PO BID Qty: 180 RF: 3 ascorbic acid (vitamin C) 1,000 mg tablet extended release 1,000 mg PO QAM RF: 0 clindamycin HCl 300 mg capsule 600 mg PO UD PRN (Reason: PRE DENTAL) RF: 0 levocetirizine [Xyzal] 5 mg Tablet 5 mg PO QAM RF: 0 vitamin E 400 unit Tablet 400 unit PO DAILY RF: 0 losartan 100 mg tablet 100 mg PO QAM RF: 0 Discharge Orders: Discharge Order (Routine); Ordered 03/25/21 Ordered By: Alfredo Soto Admission Data Admit Date/Time: 03/23/21 11:23 Attending Provider: Alfredo Soto Admit Provider: Alfredo Soto Primary Care Provider: Surya Britton III Other Providers: Malcom Neely ; Jolanta Babb ; Cuong Barker ; J Luis Dinh ; Festus Castano ; Walter Rodrigues ; Fuad Mortensen ; Alexandra Bermudez ; Deepthi Sandoval ; Manuel Smith ; Cindy Spear ; Latonya Toth ; Lyndon Lopes ; Michele Ojeda ; Bobby Albarado ; Jolnata Mc ; Neville Boogie ; Kim Zamora ; Segundo Luna ; Cuong Lacey ; Renard Arellano ; Yanet Elizalde ; Adam Gutierrez ; Cindy Kirkland ; Blayne Chisholm ; Nick Mckenna Coding Level of Care Code D/C DAY MANAGEMENT <30 MINS Diagnoses Status post spinal surgery Z98.890
--- NOTE | 2021-03-26 21:10 | Operative Report ---
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 Anterior Cervical Discectomy and Fusion C4-5 2. Anterior Cervical Instrumentation same levels 3. Anterior Interbody Device same levels 4. Local Autograft for anterior cervical fusion 5. Allograft, morselized (DBM) Surgeon Alfredo Soto MD Attorney [employer] Michele Sahu PA-C Estimated Blood Loss 25 Findings Consistent with Post-Op Diagnosis Specimens none Description of Procedure Implants: 1. K2M [place] Cervical Interbody - 7deg, 12x14, 8mm height 2. K2M [place] anterior cervical plate 20mm with 4.0x16mm screws (x4) 3. [employer] [place] DBM Drains: 1. TAZ drain x 1 (10 Greek) Indications: Patient is a 76 year old male who presented to my clinic on February 28, 2021 with symptoms and signs suggestive of a left C5 radiculopathy with disabling weakness of deltoid muscle for 6 weeks with no improvements with non-operative management. MRI imaging was completed which confirmed severe central and bilateral foraminal stenosis at C4-5. Given presence of severe functional limitation with disabling weakness of his left deltoid, a discussion was had with the patient with regards to surgical management of this issue. Informed consent was obtained and patient was booked for above procedure. On day of surgery, patient was identified in pre-op holding area. History and Physical was updated, surgical site was marked, and consent was confirmed. Risks, benefits and alternatives were discussed again and I answered all their questions. Description of procedure: Patient was brought to the operating room and underwent general anesthesia. Patient was placed supine on the operating table with neck in gentle extension. Face, eyes, bony prominences, and peripheral nerves were well protected. SCDs were applied to bilateral legs to reduce risk of DVT. Anterior cervical region was prepped and draped in standard fashion. A time-out was performed and documented. This included confirmation of administration of prophylactic antibiotics prior to incision. Anterior Sharp-Godinez type approach was made on the right side. The carotid artery was palpated and retracted laterally. The anterior cervical spine was visualized and a localization needle was placed in the affected disc space and confirmed with lateral portable x-ray. The longus coli was elevated bilaterally and a self retaining retractor placed. Anterior discectomy was performed with disc knife, ronguers, and currettes. Anterior osteophytes were removed and saved for local autograft. [place] type distraction pins were placed into the vertebral body above and below the disc. Gentle distraction was applied. Posterior discectomy with decompression of the central spinal cord and bilateral foraminal areas was performed with high speed melissa, curettes, and ronguers. This included the takedown of PLL for assessment of any disc protrusion posterior to it. Of note, large posterior osteophytes were noted bilaterally, lateral to the midline. These were thinned down with a melissa and removed using an upgoing currete. Once the decompression was judged to be adequate, attention was turned to the preparation of the interspace for fusion. A melissa and currettes were used to prepare endplates for fusion with flat, bleeding surfaces. A trial sizer was used to size the interbody device. The interbody device was packed with local bone and DBM allograft. The interbody device was placed in the interspace and the distraction pins were removed. Bone wax was used to control bleeding from the pin sites. An appropriate size anterior cervical plate was selected. The screw sites were pre-drilled. The plate was secured with two screws into the vertebral body above and two into the body below. The self retaining retractor was removed and the wound checked for hemostasis. Lateral portable x-ray imaging confirmed the correct surgical level and implant positions. The wound was irrigated. There was good hemostasis. A TAZ drain was inserted below the incision. The platsyma layer was closed with 2-0 vicryl and the skin with 3-0 monocryl. Steristrips, and a sterile dressing were applied. The patient was awakened and taken to the recovery room in stable condition. Neuromonitoring was performed throughout the case using SSEP, MEP, EMG and vocal cord monitoring. There were no intraoperative complications noted. Sponge and needle counts were correct x2 at the conclusion of the case. I attest to the content of the Intraoperative Record and any orders documented therein. Any exceptions are noted below.
== END 2021-03-25 12:34 | disposition home or self-care (01) | DRG 30 ==
LOC: ASU 05:40 → 3E 11:23

== ENCOUNTER 2024-07-06 07:28 | Observation (INO) ==
--- NOTE | 2024-06-08 12:51 | PAT Medication Instructions ---
Medication Instructions Date of Service June 08, 2024 Home Medications Medication Instructions Recorded losartan 100 mg tablet 100 mg PO QAM #90 tabs 01/22/24 tamsulosin 0.4 mg capsule 0.4 mg PO HS #90 caps 01/22/24 apixaban 5 mg tablet (Eliquis) 5 mg PO BID #60 tabs 03/13/24 amlodipine 5 mg tablet 5 mg PO HS #90 tabs 06/01/24 Medication List: levocetirizine 5 mg tablet (Xyzal) 5 mg PO QAM glucosam 750 mg-chondroi 100 mg-hyalur 1.65 mg-CF borate 108 mg tablet ([facility] [employer]) 1 tab PO QAM triamcinolone acetonide 0.1 % topical cream 1 applic topical DAILY PRN Rash losartan 100 mg tablet 100 mg PO QAM tamsulosin 0.4 mg capsule 0.4 mg PO HS apixaban 5 mg tablet (Eliquis) 5 mg PO BID gabapentin 300 mg capsule 300 mg PO BID amlodipine 5 mg tablet 5 mg PO HS furosemide 20 mg tablet (Lasix) 20 mg PO QAM PRN Edema ibuprofen 200 mg tablet (Advil) 200 mg PO Q6H PRN Pain metoprolol succinate 25 mg tablet,extended release 24 hr 25 mg PO QAM potassium chloride 20 mEq tablet,extended release 20 meq PO QAM PRN Edema/Lasix MEDICATION INSTRUCTIONS: Continue as directed triamcinolone acetonide 0.1 % topical cream 1 applic topical DAILY PRN Rash (do not apply after bathing prior to surgery) ASK your surgeon for instructions ibuprofen 200 mg tablet (Advil) 200 mg PO Q6H PRN Pain ASK your prescriber and surgeon apixaban 5 mg tablet (Eliquis) 5 mg PO BID STOP taking 2 weeks before surgery glucosam 750 mg-chondroi 100 mg-hyalur 1.65 mg-CF borate 108 mg tablet ([facility] [employer]) 1 tab PO QAM DO NOT take the morning of surgery potassium chloride 20 mEq tablet,extended release 20 meq PO QAM PRN Edema/Lasix furosemide 20 mg tablet (Lasix) 20 mg PO QAM PRN Edema losartan 100 mg tablet 100 mg PO QAM levocetirizine 5 mg tablet (Xyzal) 5 mg PO QAM Take morning of surgery With a small sip of water, OTHERWISE NOTHING TO EAT OR DRINK AFTER MIDNIGHT: metoprolol succinate 25 mg tablet,extended release 24 hr 25 mg PO QAM gabapentin 300 mg capsule 300 mg PO BID Take evening before surgery amlodipine 5 mg tablet 5 mg PO HS tamsulosin 0.4 mg capsule 0.4 mg PO HS gabapentin 300 mg capsule 300 mg PO BID Other Notes If you have any questions please call us at [phone] or [phone] or [phone] or [phone]
--- NOTE | 2024-06-16 12:03 | Anesthesiology Consultation ---
Date of Service June 16, 2024 Assessment & Plan (1) Encounter for pre-operative examination: - Infectious disease screening: Per assessment on 06/05/24- No known recent infectious disease contacts or current infectious disease symptoms. - Outpatient joint assessment: Pt currently scheduled for inpatient pathway. If surgeon requests review for outpatient joint pathway, patient is not recommended candidate for outpatient joint program from anesthesia standpoint based on available information. - Eliquis instructions per surgeon/prescriber (surgeon's office made cardiology aware of upcoming surgery and will defer to cardio for perioperative Eliquis instructions) - Cardiology visit (04/23/24): "Atrial fibrillation: He evidently has asymptomatic paroxysmal atrial fibrillation but it seems that his burden is quite low. I think some of the high heart rate readings on his blood pressure record that he takes at home may be atrial fibrillation, but they are isolated and for the most part his heart rate is in the 50s. I would leave his beta- blockade alone at this time, he is only on 25 mg daily of metoprolol succinate but I would not go higher due to his bradycardia. He should remain on anticoagulation. I am giving him a 14-day MCOT monitor to wear, I would like to get an idea of his atrial fibrillation burden and heart rate during it.. Anticoagulation: He should be on an anticoagulant and he is doing well on Eliquis, he is on the correct dose based on his age and weight, his creatinine is borderline but that would support the current dose as well. He does have some easy bruisability but of evidently he has always had that and it might be a little bit worse. He has had no other bleeding. His [id number] score is 3 (age and high blood pressure).. Hypertension: His blood pressure is very well- controlled on his home monitoring, he is on a number of medications but should remain on them. The amlodipine may be contributing to peripheral edema.. Edema: I do not know that his edema is related to atrial fibrillation since it seems that he is not in atrial fibrillation very often. The furosemide did remove his edema quite quickly and I recommend that he take it as needed along with a potassium chloride tablet when he takes the furosemide. I do not think he is drinking excessively. Amlodipine may be contributing but I have not stop ped it. Follow Up: 6 Months" - Patient acceptable risk for surgery pending 04/2024 cardiac event monitor ([facility] cardio, only partial report from 04/29 in chart at this time). Chart Review Chart Review: Patient seen in Pre Admission Testing Teaching & Discussion Pre-Anesthesia Teaching/Discussion Notes: Instructed NPO after midnight before surgery,except medications with 15 cc of water. Medication instructions provided according to the PAT guidelines. History Surgery Operation Date: 07/06/24 11:15 Proposed Procedures p Left Reverse Total Shoulder Arthroplasty - Renard Hoang, Height/Weight Height: 5 ft 8 in Weight: 115.2 kg Allergies Allergy/AdvReac Type Severity Reaction Status Date / Time adhesive Allergy Intermediate Rash/Swelli Verified 06/05/24 14:32 ng Penicillins Allergy Intermediate Rash/Rednes Verified 06/05/24 14:32 s pollen extracts Allergy Intermediate Runny Verified 06/05/24 14:32 Nose/Congestion/Itching-Watery Eyes tapentadol Allergy Intermediate Rash Verified 06/05/24 14:32 Medications Home Medications Medication Instructions Recorded Confirmed Last Taken levocetirizine 5 mg tablet (Xyzal) 5 mg PO QAM 06/17/19 06/05/24 04/04/22 glucosam 750 mg-chondroi 100 1 tab PO QAM 05/11/21 06/05/24 04/04/22 mg-hyalur 1.65 mg-CF borate 108 mg tablet ([facility]) triamcinolone acetonide 0.1 % 1 applic topical DAILY PRN Rash 05/11/21 06/05/24 05/21/21 topical cream losartan 100 mg tablet 100 mg PO QAM #90 tabs 01/22/24 06/05/24 Unknown tamsulosin 0.4 mg capsule 0.4 mg PO HS #90 caps 01/22/24 06/05/24 Unknown apixaban 5 mg tablet (Eliquis) 5 mg PO BID #60 tabs 03/13/24 06/05/24 Unknown gabapentin 300 mg capsule 300 mg PO BID 04/24/24 06/05/24 Unknown amlodipine 5 mg tablet 5 mg PO HS #90 tabs 06/01/24 06/05/24 Unknown furosemide 20 mg tablet (Lasix) 20 mg PO QAM PRN Edema 06/05/24 06/05/24 Unknown ibuprofen 200 mg tablet (Advil) 200 mg PO Q6H PRN Pain 06/05/24 06/05/24 Unknown metoprolol succinate 25 mg 25 mg PO QAM 06/05/24 06/05/24 Unknown tablet,extended release 24 hr potassium chloride 20 mEq 20 meq PO QAM PRN Edema/Lasix 06/05/24 06/05/24 Unknown tablet,extended release Past Medical History Medical History Atrial fibrillation Taking Eliquis Follows with Dr. Abernathy Atrial flutter BPH (benign prostatic hyperplasia) Bradycardia Diverticulosis of colon Edema of both legs Environmental allergies Eye problem Vein collapse in both eyes (Injections PRN) Next injection 06/29/24 dr alicia History of colon polyps Hx of Lyme disease s/p antibiotic completion Hypertension Obesity Osteoarthritis Post herpetic neuralgia Radiculopathy, cervical region Rotator cuff tear, left Shingles Hx 2012 > residual shoulder nerve damage per patient Spinal stenosis Exercise / Class Metabolic Activity II 4-5 Yardwork/Stairs/Walk up hill (one FS: No CP, no SOB) Past Family History Family History Father Amyloidosis Hypertension Brother Hypertension Sigmoid polyp Mother Stroke Other No significant family history Denies family history of Ovarian cancer Prostate cancer Myocardial infarction Breast cancer Colorectal cancer Past Surgical History Surgical History Fusion of spine C4-5 03/2021- [facility] History of anesthesia reaction Urinary retention with KAT History of arthroscopy Left Knee History of carpal tunnel surgery of right wrist History of cataract surgery R/L History of colonoscopy one tubular adenoma and one hyperplastic polyp, most recent removed polyps 2022 History of esophagogastroduodenoscopy (EGD) History of tooth extraction History of total hip arthroplasty Right Hx of arthroscopy of shoulder left x2 Left shoulder arthroscopy (06/13/23): LMA#5 + regional at [facility] Hx of transurethral resection of prostate 10+ years ago S/P epidural steroid injection 12/2023 Dr. Anand Past Anesthesia History No Family Hx of Anesthesia Complications and Other (Urinary retention with KAT ) History of PONV No Hx of PONV and No Hx of Motion Sickness Social History Smoking Status: Former smoker tobacco type: cigarettes Smoking cigarettes per day: Quit 2007 Do You Dip or Chew Tobacco: No Hx Alcohol Use: Yes Alcohol type: hard liquor alcohol intake frequency: 0-2 drinks per day (2 drinks/day) Hx Substance Use: No substance use type: does not use Review of Systems Patient denies chest pain, shortness of breath, dyspnea on exertion, fever, chills, cough, wheezing, palpitations. Physical Exam Vital Signs BP 123/72 P 54 TEMP 97.9 SP02 97%RA RESP 16 Physical Decreased cervical extension range of motion. Full TMJ range of motion. TMD > 3.5 finger breaths Mallampati Score II Dentition: missing sides/molars, + crowns Lungs: clear throughout to auscultation Cardiac: regular rate and rhythm, no murmurs noted Spine: normal Carotid arteries: negative bruit Extremities: no LE edema Lab Results Anesthesia Preop Results Results Anesthesia Widget: WBC 4.97 K/ul (4.8-10.8) 06/16/24 Hgb 14.8 g/dl (14.0-18.0) 06/16/24 Hct 43.6 % (42.0-52.0) 06/16/24 Plt 210 K/uL (130-400) 06/16/24 Na 139 mmol/L (136-145) 06/16/24 K 4.2 mmol/L (3.5-5.1) 06/16/24 Cl 105 mmol/L (98-107) 06/16/24 CO2 30 mmol/L (21-32) 06/16/24 BUN 14 mg/dl (6-23) 06/16/24 Creat 1.27 mg/dl (0.6-1.4) 06/16/24 Glucose Level 105 mg/dl (70-99(Fasting)) H 06/16/24 PT 10.9 Seconds (9.0-12.0) 06/16/24 PTT 29 Seconds (21-31) 06/16/24 INR 1.0 (0.9-1.1) 06/16/24 Blood Type O Positive 06/16/24 Antibody Screen NEGATIVE 06/16/24 Testing Electrocardiogram Date: 04/23/24 SB at 57bpm. Low voltage QRS. Chest X-Ray Date: 06/16/24 FINDINGS: The lungs are clear. Cardiomediastinal silhouette is within normal limits. No acute osseous abnormalities. No pleural effusion or pneumothorax. Lower cervical fusion hardware. IMPRESSION: No acute cardiopulmonary findings. Echocardiogram Date: 03/26/24 EF 55-60%. LV wall motion is normal. Mild concentric LVH. Mild LAD. Mild RVD. No obvious valvular disease on technically limited Doppler. Other Testing watch mechanic Date: 04/25/24 (enrolled 04/25/24-05/08/24) Cardiology note/monitor review 04/29/24: "call center receptionist note April 29, 2024, 4:24 am. call from [phone] regarding patient wearing an ambulatory ECG monitor. Tank Inspector reported 2 events. Episode of atrial flutter with ventricular rate 80 beats per minute. Conversion to sinus rhythm with a 2.3 second pause. Another episode atrial flutter with ventricular rate 96 beats per minute. Review of chart shows patient has history of atrial fibrillation and is appropriately anticoagulated with apixaban 5 mg b.i.d.. He is also on metoprolol succinate ER 25 mg daily.. No urgent intervention necessary."
[~2024-07-06 07:28] MED LIST changes: -ASPI15TA PO; +BUPIVACAINE 0.5 % 5 MG/1 ML PF 10ML VIAL ONE; -CLIN300C10 PO; -DOXY50CA26 PO; -GABA-113 PO; -IOPAMIDOL INJ 61% 15 ML VIAL ONE; -LIDOCAINE HCL 1% MPF 5 ML VIAL ONE; -SENNTAB23 PO; -SODIUM CHLORIDE 0.9% INJ 10 ML VIAL ONE; -XYZAL PO
--- OUTSIDE RECORDS SUMMARY | 2024-07-06 07:34 | External Medical Summary | Summary of Care ---
Author Name Unknown Organization [facility] Address [address] [place] [address] Phone [phone] Care Team Providers Care Biometrician Name Role Phone Pat Monteiro PA-C Primary Care Provider [phone] Reason for Visit * Reason Comments Follow Up * Precert (Within 10 days (routine)) - Authorized Specialty Diagnoses / Procedures Referred By Mariia marrufo Referred To Contact Ophthalmology Diagnoses Central retinal vein occlusion, left eye, with macular edema Procedures VT AFLIBERCEPT INJECTION VT INTRAVITREAL NJX PHARMACOLOGIC AGT SPX Neville Owusu DO [address] [place] [address] Phone: tel: fax: Ophthalmology, [facility] [address] [place] [address] Phone: tel: fax: Referral ID Status Reason Start Date Expiration Date V isits Requested Visits Authorized [id number] Authorized Precert 07/23/2023 07/21/2024 [id number] Encounter Details Date Type Department Care Team (Late st Contact Info) Description 06/29/2024 10:15 AM EST Office Visit Ophthalmology, [facility] [address] [place] [id number] Neville Owusu DO [address] [place] [address] Central retinal vein occlusion with macular edema of left eye*; Stable branch retinal vein occlusion of right eye Allergies Active Allergy Reactions Criticality Noted Date Comments Adhesive Tape Rash,Hives,Itching 07/01/2019 Other Reaction(s): Hives, RASH, LOCAL SWELLING UNDER ADHESIVE Dust 02/21/2022 Other reaction(s): runny nose Penicillins Rash 10/30/2015 Pollen 02/21/2022 Other reaction(s): runny nose Pollen Extract Itching 06/06/2023 Tapentadol 04/02/2022 Other reaction(s): rash all over body documented as of this encounter (statuses as of 06/29/2024) Medications Levocetirizine Dihydrochloride 5 MG Oral Tablet Take 1 Tablet by mouth in the morning. Active triamcinolone 0.1% / cerave 1:1 1:1 cream Apply 1 Application Dosing Unit topically to affected area as needed. Active amLODIPine (NORVASC) 5 MG Tablet Take 1 Tablet by mouth in the morning and 1 Tablet before bedtime. Active losartan (COZAAR) 100 MG Tablet Take 1 Tablet by mouth in the morning. Active Move Free Joint [facility] Advance Oral Tablet Take by mouth. Ac tive Refresh 1.4-0.6 % Ophthalmic Solution (polyvinyl alcohol-povidone PF) Instill 1 Drop into both eyes in the morning. Active Gabapentin 300 MG Oral Capsule (Neurontin) Active Ibuprofen 200 MG Oral Tablet (Advil) Take 1 Tablet by mouth every 4 hours as needed. Active Metoprolol Tartrate 25 MG Oral Tablet (Lopressor) Take 1 Tablet by mouth daily. Active Apixaban 5 MG Oral Tablet (Eliquis) Take 1 Tablet by mouth in the morning and 1 Tablet before bedtime. Active Tamsulosin HCl 0.4 MG Oral Capsule (Flomax) Take 1 Capsule by mouth every evening. Active Potassium Chloride ER 20 MEQ Oral Tablet Extended Release Take 20 Milliequivalent by mouth as needed for Other (take with Lasix PRN edema). Active Furosemide 20 MG Oral Tablet (Lasix) Take 1 Tablet by mouth as needed for Other (PRN edema, take with Potassium). Active Fluocinonide 0.05 % cream Apply 1 Application Dosing Unit topically to affected area as needed. 06/29/ 2024 Disconti nued(Med ication List Clean Up) Furosemide 20 MG Oral Tablet (Lasix) Take 1 Tablet by mouth in the morning. 2023 Disconti nued(Med ication List Clean Up) Potassium Chloride ER 20 MEQ Oral Tablet Extended Release Take 1 Tablet by mouth in the morning. 2023 Disconti nued(Med ication List Clean Up) Hospital, Clinic, or Other Facility Administered Medication Ordered Dose Route Frequency Start Date End Date Status Aflibercept (Eylea) intraviteal prefilled syringe 2 mgIndications:Central retinal vein occlusion with macular edema of left eye,Stable branch retinal vein occlusion of right eye 2 mg IZ PRN 10/08/2023 10/07/19 25 Active ROPivacaine (Naropin) inj 1.5 mgIndications:Central retinal vein occlusion with macular edema of left eye,Stable branch retinal vein occlusion of right eye 1.5 mg IJ PRN 10/08/2023 10/07/19 25 Active documented as of this encounter (statuses as of 06/29/2024) Active Problems No known active problems documented as of this encounter (statuses as of 06/29/2024) Immunizations Name Administration Dates Next Due COVID-19 mRNA, LNP-s, No Pre serve, 2-Dose Series (Redbiotec) 06/13/2023 Pneumococcal Conjugate Vacc, 13 Valent (Prevnar) 10/24/2015 Season Influenza, Quad, PF, Adjuvanted, 65+ Yrs, IM (FLUAD) 05/06/2020 Seasonal Influenza, Quadrivalent Hd (Fluzone Hd) 06/13/2023,04/27/2021 Seasonal Influenza, Trivalen t, Adjuvanted, 65+ YRS, PF, (Fluad) 04/29/2019 Varicella Zoster Vaccine (Adult) 09/12/2015 Zoster Vaccine Recombinant (Shingrix) 06/10/2019 ,03/30/2019 documented as of this encounter Social History Tobacco Use Types Packs/Day Years Used Date Smoking Tobacco: Former Cigarettes Q uit: 2007 Smokeless Tobacco: Never Alcohol Use Standard Drinks/Week Comments Yes 1 (1 standard drink = 0.6 oz pur e alcohol) A drink a day Utilities Answer Date Recorded Do you have trouble paying y our heating, water, or electric bill? (Adult - for ages 18 years and over) Not on file 01/28/2024 Is your family able to pay t he heat, water, or electric bill? (Household - for ages 0-17 years) Not on file 01/28/2024 Does your family have access to good internet? (Household - for ages 0-17 years) Not on file 01/28/2024 Social Connections Answer Date Recorded How often do you feel lonely or isolated from those around you? (Adult - for ages 18 years and over) Not on file 01/28/2024 Sex and Gender Information Value Date Recorded Sex Assigned at Not on file Legal Sex Male 5:17 AM EST Gender Identity Not on file Sexual Orientation Not on file documented as of this encounter Progress Notes * Neville Owusu, DO - 06/29/2024 10:15 AM EST [facility] [place] Nursing Notes: Scarlett Newman RN 06/29/24 1034 Signed Manuel Greene is a 79 year old year old male who presents for CRVO OS/BRVO OD. Last Office Visit: 03/31/2024 (in office), Visit date not found (telemedicine) Patient currently states "about 2 months ago using stypic that use for cuts on eyelid but got in myeye and since feels like something in my eye and in same eye have big floater like amoeba with tailand blurry vision and eyelids heavy and things look dark" Are you diabetic? No Do you drive? yes OCT image(s) of both eyes acquired and filed/scanned into chart. Base Eye Exam Visual Acuity (Snellen - Linear) Right Left Dist cc 20/25 -2 20/50 -1 Dist ph cc 20/40 -2 Correction: Glasses Tonometry (Tonopen, 10:33 AM) Right Left Pressure 10 13 Pupils Pupils APD Right PERRL None Left PERRL None Visual Caed (Counting fingers) Right Left Full Full Extraocular Movement Right Left Full, Ortho Full, Ortho Neuro/Psych Oriented x3: Yes Mood/Affect: Normal Dilation Both eyes: 0.5% Proparacaine @ 10:32 AM Dilation #2 Both eyes: 1.0% Mydriacyl, 2.5% Phenylephrine @ 10:32 AM Dilation #3 Both eyes: 1.0% Mydriacyl, 2.5% Phenylephrine @ 10:34 AM Dilation Comments Patient cautioned that effects of dilation may last 2-7 hours dependant upon individual reaction. It was discussed that driving while dilated is not recommended. EXTERNAL: The ocular adnexae are unremarkable. SLE: Lids/Lashes: wnl OU Conjunctiva/Sclera: quiet OU Cornea: clear OU Anterior Chamber: deep and quiet OU Iris: normal OU; no NVI OU Lens: PCIOL OU Dilated fundus exam OD: vitreous: PVD optic nerve: 0.3, no edema/pallor/NVD macula: no cme, hard drusen vessels: old superior BRVO periphery: wnl, no RT/RD Dilated fundus exam OS: vitreous: PVD optic nerve: 0.35, +collaterals, no edema/pallor/NVD macula: one solitary hard drusen inferotemporally vessels: wnl periphery: resolved dot blot hemes x 4 quads, no RT/RD OCT Interpretation: OD: resolved superior CME, superior thinning, +PVD - STABLE OS: mild cme, ERM, +PVD - worse 44um prior worse 39um prior STABLE A/P: 1. Central Retinal Vein Occlusion OS -s/p Avastin OS (06/26/22, 04/25/22, 02/21/22, 12/27/21, 10/31/21--[place]......04-27-21, 01/25/21....10/11/20, 08/16/20 --[place], 04-06-20, 20, 10-20-19-FL, 09-22-19-FL, 08-18-19-FL, 07-14-19-FL) - 9 weeks since injection; has gone 15 weeks in past; worse at 13 weeks -Eylea 03/31/24, 12/30/23, 09/18/23, 07/23/23, 05/08/23, 02/20/23, 12/18/22, 10/23/22, 08/28/22 -13 weeks 2. 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 07-01-19, 05-06-19, 03-11-19, 01-21-19) -An examination for this condition was completed which is unrelated to the procedure that was performed today -monitor 3. Posterior Vitreous Detachment OU -no RT/RD -advised to return to clinic if he should experience worsening or new floaters, flashes of light, ashadow in the periphery, or decrease in vision. 4. Pseudophakia OU -by Dr. Nagel -stable F/u 12-14 weeks - dilate and OCT OU Neville Owusu, CC: JESUSITA TIMEOUT PROCEDURE: correct patient identity-YES correct procedure and consent-YES verified side and site-YES correct patient position-YES all necessary equipment/prior studies present-YES reviewed special requirements of this patient-YES PROCEDURE: Intravitreal injection of Eylea (aflibercept) 2mg OS INFORMED CONSENT: Risks, benefits and alternatives have been discussed with the patient. Risks include, but are not limited to: retinal tears, detachments, hemorrhage, glaucoma, infection, cataracts, need for more procedures and the potential risk of arterial thromboembolic events following use of intravitreal VEGF inhibitors defined as nonfatal stroke, nonfatal myocardial infarction or vascular . Patient is aware of these risks and consents to the procedure. DESCRIPTION OF PROCEDURE: The procedure site was confirmed. Topical proparacaine was applied to the surface of the eye after which subconjunctival anesthetic was administered. The area was prepped in the standard aseptic manner with 5% Betadine solution. An eyelid speculum was placed and 2mg (0.05 ml) of Eylea was injected 3.75 mm posterior to the limbus into the midvitreous cavity with a 30 gauge short needle. The eye speculum was removed, Betadine was flushed from the eye and optic nerve perfusion was insured. The patient tolerated the procedure without difficulty and was given followup instructions and instructed to use ophthalmic ointment 3x/day as needed. Neville Owusu DO, performed the procedure in its entirety. documented in this encounter Nursing Notes * Sejal Oliva LPN - 06/29/2024 10:56 AM EST Manuel Greene to receive 10 Eylea 2mg Injection of the Left eye. Correct eye confirmed with patient and marked by Neville Owusu DO Eylea 2mg lot # [id number] Exp. Date: 03/2025 * Scarlett Newman RN - 06/29/2024 10:18 AM EST Manuel Greene is a 79 year old year old male who presents for CRVO OS/BRVO OD. Last Office Visit: 03/31/2024 (in office), Visit date not found (telemedicine) Patient currently states "about 2 months ago using stypic that use for cuts on eyelid but got in myeye and since feels like something in my eye and in same eye have big floater like amoeba with tailand blurry vision and eyelids heavy and things look dark" Are you diabetic? No Do you drive? yes OCT image(s) of both eyes acquired and filed/scanned into chart. documented in this encounter Plan of Treatment Scheduled Orders Name Type Priority Associated Diagnoses Orde r Schedule RETINA SCAN DIAGNOSTIC IMAGE, POSTERIOR Procedures Routine Central retinal vein occlusion with macular edema of left eye Stable branch retinal vein occlusion of right eye Ordered: 06/29/2024 Health Maintenance Due Date Last Done Comments Depression Screening 1957 Hepatitis C Screening 1963 DTap/Tdap Vaccines (1 - Tdap) 01/19/1964 COVID-19 Vaccine (3 - season) 2024 06/13/2023, 05/14/2022 Influenza Vaccine (FLU shot) (#1) 2024 06/13/2023, 04/27/2021, 05/06/2020, Additional history exists Pneumococcal Vaccine: 65+ Years Completed 10/24/2015, 10/20/2010 Zoster Vaccines Completed 06/10/2019, 03/12, 03/12/2019, Additional history exists HPV (Gardasil) Vaccine Aged Out No lo nger eligible based on patient's age to complete this topic Hepatitis B Vaccine Aged Out No longe r eligible based on patient's age to complete this topic MENINGOCOCCAL (MENACTRA/MENVEO) Aged Out No longer eligible based on patient's age to complete this topic documented as of this encounter Medical Devices Implanted Type Area Manual Lathe Machinist Device Identifier Shelf Expiration Date Model / Serial / Lot Lens 20.0 Mx60e - [id number] - [id number] Implanted:Qty: 1 on 03/08/2020 by Gt Nagel MD at [facility] Left: Eye [employer] 08/11/2022 [id number]-13.0 / [id number] / Lens 19.5 Mx60e - [id number] - [id number] Implanted:Qty: 1 on 03/15/2020 by Gt Nagel MD at OR [facility] Right: Eye [employer] 01/09/2023 [id number]-73.5 / [id number] / [id number] documented as of this encounter Visit Diagnoses Diagnosis Central retinal vein occlusion with macular edema of left eye- Primary Stable branch retinal vein occlusion of right eye documented in this encounter Administered Medications Active Administered Medications - up to 3 most recent administrations Medication Order MAR Action Action Date Dose Rate Site Aflibercept (Eylea) intraviteal prefilled syringe 2 mg 2 mg, Intravitreal, PRN Other, Starting on Sat10/08/23 at 1203, Until Sat10/07/24 at 1202, For 365 daysIndications:Central retinal vein occlusion with macular edema of left eye,Stable branch retinal vein occlusion of right eye Given 06/29/2024 10:58 AM EST 2 mg Eye Left Given 03/31/2024 8:49 AM EDT 2 mg Ey e Left Given 12/30/2023 9:26 AM EDT 2 mg Ey e Left ROPivacaine (Naropin) inj 1.5 mg 1.5 mg, Injection, PRN Other, Starting on Sat10/08/23 at 1203, Until Sat10/07/24 at 1202, For 365 daysIndications:Central retinal vein occlusion with macular edema of left eye,Stable branch retinal vein occlusion of right eye Given 06/29/2024 10:58 AM EST 1.5 mg Eye Left Given 03/31/2024 8:47 AM EDT 1.5 mg Ey e Left Given 12/30/2023 9:26 AM EDT 1.5 mg Ey e Left documented in this encounter Care Teams Biometrician Relationship Specialty Start Date End Date Pat Monteiro PA-C [address] [place] [address] PCP - General Physician Tow Truck Driver 06/26/22 documented as of this encounter
--- OUTSIDE RECORDS SUMMARY | 2024-07-06 07:34 | External Medical Summary | Summary of Care ---
Author Name Unknown Organization [facility] Address [address] [facility] [place] [address] Phone [phone] Care Team Providers Care Roll Grinder Operator Name Role Phone Pat Monteiro PA-C Primary Care Provider [phone] [phone] Reason for Visit * Reason Comments Follow Up * Precert (Within 10 days (routine)) - Authorized Specialty Diagnoses / Procedures Referred By Mariia marrufo Referred To Contact Ophthalmology Diagnoses Central retinal vein occlusion, left eye, with macular edema Procedures [place] AFLIBERCEPT INJECTION W[place] INTRAVITREAL NJX PHARMACOLOGIC AGT SPX Neville Owusu DO [address] [place] [address] Phone: tel: fax: Ophthalmology, [facility] [address] [place] [address] Phone: tel: fax: Referral ID Status Reason Start Date Expiration Date V isits Requested Visits Authorized [id number] Authorized Precert 07/23/2023 07/21/[id number] Encounter Details Date Type Department Care Team (Late st Contact Info) Description 06/29/2024 10:15 AM EST Office Visit Ophthalmology, [facility] [address] [place] [address] Neville Owusu DO [address] [place] [address] Central retinal vein occlusion with macular edema [...] in the morning. Active Move Free Joint [facility] Advance Oral Tablet Take by mouth. Act becca Refresh 1.4-0.6 % Ophthalmic Solution (polyvinyl alcohol-povidone [...] mRNA, LNP-s, No Pre serve, 2-Dose Series ([email or web address]) 06/13/2023 Pneumococcal Conjugate Vacc, 13 Valent (Prevnar) [...] Date Smoking Tobacco: Former Cigarettes Q uit: 2008 Smokeless Tobacco: Never Alcohol Use Standard Drinks/Week Comments Yes 1 (1 standard drink = 0.6 oz pur e alcohol) A drink a day Sex and Gender Information Value Date Recorded Sex Assigned at Not on file Legal Sex Male 5:17 AM EST Gender Identity Not on file Sexual Orientation Not on file documented as of this encounter Progress Notes * Neville Owusu, DO - 06/29/2024 10:15 AM EST [facility] [place] Nursing Notes: Scarlett [...] Right PERRL None Left PERRL None Visual Cade (Counting fingers) Right Left Full Full Extraocular [...] 04/25/22, 02/21/22, 12/27/21, 10/31/21--[place]......04-27-21, 01/25/21....10/11/20, 08/16/20 --FL, 20, 20, 20-FL, 20-FL, 20-FL, 07-14-19-FL) - 9 weeks since injection; has [...] weeks - dilate and OCT OU Neville Owusu DO CC: JESUSITA TIMEOUT PROCEDURE: correct patient identity-YES [...] Neville Owusu DO Eylea 2mg lot # [id number] Exp. Date: 03/2025 * Scarlett Newman RN [...] this encounter Medical Devices Implanted Type Area Development Technical Lead Device Identifier Shelf Expiration Date Model / Serial / Lot Lens 20.0 Mx60e - [id number] - [id number] Implanted:Qty: 1 on 03/08/2020 by Gt Nagel MD at OR [facility] Left: Eye BAUSCH & LOMB 08/11/2022 [id number]-53.0 / [id number] / Lens 19.5 Mx60e - [id number] - [id number] Implanted:Qty: 1 on 03/15/2020 by Gt Nagel MD at OR [facility] Right: Eye BAUSCH & LOMB 01/09/2023 [id number]-62.5 / [id number] / [id number] documented as of this encounter Visit Diagnoses [...] Left documented in this encounter Care Teams Roll Grinder Operator Relationship Specialty Start Date End Date Pat Monteiro PA-C [address] [place] [address] PCP - General Physician Supervisor Pigment Making 06/26/22 documented as of this encounter
--- OUTSIDE RECORDS SUMMARY | 2024-07-06 07:34 | External Medical Summary | Summary of Care ---
Author Name Unknown Organization [facility] Address [address] [facility] [place] [address] Phone [phone] Care Team Providers Care Forensic Nurse Name Role Phone Pat Monteiro PA-C Primary Care Provider [phone] Reason for Visit * Reason Comments Follow Up * Precert (Within 10 days (routine)) - Authorized Specialty Diagnoses / Procedures Referred By Mariia marrufo Referred To Contact Ophthalmology Diagnoses Central retinal vein occlusion, left eye, with macular edema Procedures [place] AFLIBERCEPT INJECTION UT INTRAVITREAL NJX PHARMACOLOGIC AGT SPX Neville Owusu DO [address] [place] [address] Phone: tel: fax: Ophthalmology, [facility] [address] [place] [address] Phone: tel: fax: Referral ID Status Reason Start Date Expiration Date V isits Requested Visits Authorized [id number] Authorized Precert 07/23/2023 07/21/[id number] Encounter Details Date Type Department Care Team (Late st Contact Info) Description 06/29/2024 10:15 AM EST Office Visit Ophthalmology, [facility] [address] [place] [address] Neville Owusu DO [address] [place] [address] Central retinal vein occlusion with macular edema [...] in the morning. Active Move Free Joint [facility] Advance Oral Tablet Take by mouth. Act [...] mRNA, LNP-s, No Pre serve, 2-Dose Series ([email or web address]) 06/13/2023 Pneumococcal Conjugate Vacc, 13 Valent (Prevnar) [...] - 06/29/2024 10:15 AM EST [facility] [place] [...] Neville Owusu DO Eylea 2mg lot # [id number] Exp. Date: 03/2025 * Scarlett Newman RN [...] this encounter Medical Devices Implanted Type Area Sanitation Associate Device Identifier Shelf Expiration Date Model / Serial / Lot Lens 20.0 Mx60e - [id number] - [id number] Implanted:Qty: 1 on 03/08/2020 by Gt Nagel MD at OR [facility] Left: Eye BAUSCH & LOMB 08/11/2022 [id number]-31.0 / [id number] / Lens 19.5 Mx60e - [id number] - [id number] Implanted:Qty: 1 on 03/15/2020 by Gt Nagel MD at OR [facility] Right: Eye BAUSCH & LOMB 01/09/2023 [id number]-81.5 / [id number] / [id number] documented as of this encounter Visit Diagnoses [...] Left documented in this encounter Care Teams Forensic Nurse Relationship Specialty Start Date End Date Pat Monteiro PA-C [address] [place] [address] PCP - General Physician Rib Matcher And Fitter 06/26/22 documented as of this encounter
--- OUTSIDE RECORDS SUMMARY | 2024-07-06 07:34 | External Medical Summary | Summary of Care ---
Author Name Unknown Organization [facility] Address [address] [facility] [place] [address] Phone [phone] Care Team Providers Care Construction Contractor Name Role Phone Pat Monteiro PA-C Primary Care Provider [phone] [phone] Reason for Visit * Reason Comments Follow Up 10-12 week f/u; pt h as no complaints since GRAEME, little dry since he had cataract surgery other romero doing well * Precert (Within 10 days (routine)) - Authorized Specialty Diagnoses / Procedures Referred By Mariia marrufo Referred To Contact Ophthalmology Diagnoses Central retinal vein occlusion, left eye, with macular edema Procedures [place] AFLIBERCEPT INJECTION [place] INTRAVITREAL NJX PHARMACOLOGIC AGT SPX Neville Owusu DO [address] [place] [address] Ophthalmology [facility] [address] [place] [address] Referral ID Status Reason Start Date Expiration Date V isits Requested Visits Authorized [id number] Authorized Precert 07/23/2023 07/21/[phone] Encounter Details Date Type Department Care Team (Late st Contact Info) Description 10/08/2023 11:00 AM EST Office Visit Ophthalmology, [facility] [address] [place] [address] Neville Owusu DO [address] [place] [address] Central retinal vein occlusion with macular edema [...] as of this encounter (statuses as of 06/16/2024) Medications Medication Sig Dispensed Refills Start Date End Date Status Fluocinonide 0.05 % cream Apply 1 Application Dosing Unit topically to affected area as needed. 12/30/2018 Active Levocetirizine Dihydrochloride 5 MG Oral Tablet Take 1 Tablet by mouth in the morning. Active triamcinolone 0.1% / cerave 1:1 1:1 cream Apply 1 Application Dosing Unit topically to affected area as needed. 03/25/2019 Active amLODIPine (NORVASC) 5 MG Tablet Take 1 Tablet by mouth in the morning and 1 Tablet before bedtime. 08/22/2019 Active losartan (COZAAR) 100 MG Tablet Take 1 Tablet by mouth in the morning. 11/17/2019 Active [facility] Advance Oral Tablet Take by mouth. Active Refresh 1.4-0.6 % Ophthalmic Solution (polyvinyl alcohol-povidone PF) Instill 1 Drop into both eyes in the morning. Active Gabapentin 300 MG Oral Capsule (Neurontin) 06/10/2022 Active Gabapentin, PHN, extended release (GRALISE) 300 MG Tablet Take 1 Tablet by mouth 3 times a day as needed. 4 Discontinue d(Medicatio n List Clean Up) Ibuprofen 200 MG Capsule Take 2 Capsules by mouth every 8 hours as needed. 4 Discontinue d(Medicatio n List Clean Up) Hospital, Clinic, or Other Facility Administered Medication Ordered Dose Route Frequency Start Date End Date Status Aflibercept (Eylea) intraviteal prefilled syringe 2 mgIndications:Central retinal vein occlusion with macular edema of left eye,Stable branch retinal vein occlusion of right eye 2 mg IZ PRN 10/08/2023 10/07/2024 Active ROPivacaine (Naropin) inj 1.5 mgIndications:Central retinal vein occlusion with macular edema of left eye,Stable branch retinal vein occlusion of right eye 1.5 mg IJ PRN 10/08/2023 10/07/2024 Active ROPivacaine (Naropin) inj 1.5 mgIndications:Central retinal vein occlusion with macular edema of left eye 1.5 mg IJ PRN 04/25/2022 10/08/2023 Discontinued documented as of this encounter (statuses as of 06/16/2024) Active Problems No known active problems documented as of this encounter (statuses as of 06/16/2024) Immunizations Name Administration Dates Next Due COVID-19 mRNA, LNP-s, No Pre serve, 2-Dose Series (Pfizer) 06/13/2023 Pneumococcal Conjugate Vacc, 13 Valent (Prevnar) [...] Recorded Sex Assigned at Not on file Gender Identity Not on file Sexual Orientation Not on file Job Start Date Occupation Industry Not on file Not on file Not on file documented as of this encounter Progress Notes * Neville Owusu, - 10/08/2023 11:00 AM EST [facility] [place] HPI: Manuel Greene is a 78 year old male who presents for evaluation of BRVO OD and CRVO OS. Base Eye Exam Visual Acuity (Snellen - Linear) Right Left Dist cc 20/20 20/25 Tonometry (Tonopen, 11:01 AM) Right Left Pressure 10 10 Pupils Pupils Right PERRL Left PERRL Visual Cade (Counting fingers) Right Left Full Full Kept looking away from nose with OD Extraocular Movement Right Left Full, Ortho Full, Ortho Neuro/Psych Oriented x3: Yes Mood/Affect: Normal Dilation Both eyes: 0.5% Proparacaine @ 10:59 AM Dilation #2 Both eyes: 1.0% Mydriacyl, 2.5% Phenylephrine @ 11:00 AM Dilation Comments Patient cautioned that effects [...] CME, superior thinning, +PVD - STABLE OS: resolved recurrent cme, ERM, +PVD - STABLE A/P: 1. Central Retinal Vein Occlusion OS -s/p Avastin OS (06/26/22, 04/25/22, 02/21/22, 12/27/21, 10/31/21--FL......04-27-21, 01/25/21....10/11/20, 08/16/20 --FL, 04-06-20, 20, 10-20-19-FL, -07-01-FL, -02-28-FL, 07-14-19-FL) - 9 weeks since injection; has gone 15 weeks in past; worse at 13 weeks -Eylea 07/23/23, 05/08/23, 02/20/23, 12/18/22, 10/23/22, 08/28/22 -11 weeks 2. 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 07-01-19, 05-06-19, 03-11-19, 01-21-19) -monitor -An examination for this condition was completed which is unrelated to the procedure that was performed today. 3. Posterior Vitreous Detachment OU -no RT/RD -advised to return to clinic if he should experience worsening or new floaters, flashes of light, ashadow in the periphery, or decrease in vision. 4. Pseudophakia OU -by Dr. Nagel -stable F/u 11-13 weeks - dilate and OCT OU Neville [...] documented in this encounter Nursing Notes * Sonia Moss MED ASSIST - 10/08/2023 11:24 AM EST Manuel Greene to receive seventh Eylea 2mg Injection of the Left eye. Correct eye confirmed with patient and marked by Neville Owusu DO Eylea 2mg lot # [id number] Exp. Date: 09/2024 * Sonia Moss MED ASSIST - 10/08/2023 10:56 AM EST Manuel Greene is a 78 year old year old male who presents for CRVO OS. Last Office Visit: 07/23/2023 (in office), Visit date not found (telemedicine) Patient currently states 10-12 week f/u; pt has no complaints since GRAEME, little dry since he had cataract surgery other romero doing well Are you diabetic? No Do you drive? yes OCT image(s) of both eyes acquired and filed/scanned into chart. documented in this encounter Plan of Treatment Upcoming Encounters Date Type Department Care Team (Late st Contact Info) Description 06/29/2024 10:15 AM EST Office [facility], [facility] [address] [facility] [place] [address] Neville Owusu DO [address] [place] [address] Health Maintenance Due Date Last Done Comments Depression Screening 1957 Hepatitis C Screening 1963 DTap/Tdap Vaccines (1 - Tdap) 01/19/1964 COVID-19 Vaccine (2023- season) 2024 06/13/2023, 05/14/2022 Influenza Vaccine (FLU [...] this encounter Medical Devices Implanted Type Area Supervisor Slitting And Shipping Device Identifier Shelf Expiration Date Model / Serial / Lot Lens 20.0 Mx60e - [id number] - [id number] Implanted:Qty: 1 on 03/08/2020 by Gt Nagel MD at OR [facility] Left: Eye BAUSCH & LOMB 08/11/2022 [id number]-05.0 / [id number] / Lens 19.5 Mx60e - [id number] - [id number] Implanted:Qty: 1 on 03/15/2020 by Gt Nagel MD at OR [facility] Right: Eye BAUSCH & LOMB 01/09/2023 [id number]-42.5 / [id number] / [id number] documented as of this encounter Visit Diagnoses [...] 1203, Until Sat10/07/24 at 1202, For 365 days Given 03/31/2024 8:49 AM EDT 2 mg Eye L eft Given 12/30/2023 9:26 AM EDT 2 mg Ey e Left Given 10/08/2023 12:11 PM EST 2 mg E ye Left ROPivacaine (Naropin) inj 1.5 mg 1.5 mg, Injection, PRN Other, Starting on Sat10/08/23 at 1203, Until Sat10/07/24 at 1202, For 365 days Given 03/31/2024 8:47 AM EDT 1.5 mg Eye Left Given 12/30/2023 9:26 AM EDT 1.5 mg Ey e Left Given 10/08/2023 12:10 PM EST 1.5 mg E ye Left documented in this encounter Care Teams Construction Contractor Relationship Specialty Start Date End Date Pat Monteiro PA-C [address] [facility] [place] [address] PCP - General Physician Polyethylene Combiner 06/26/22 documented as of this encounter
[2024-07-06] MEDS ORDERED: ONDANSETRON INJ 2 MG/ML 2 ML VIAL ONE (07:51)
[2024-07-06] MEDS ORDERED: PROPOFOL IV EMULSION 10 MG/ML 20 ML VIAL IV ONE (07:51)
[2024-07-06] MEDS ORDERED: LIDOCAINE 2% 2 ML VIAL/AMP(20MG/ML) INFIL ONE (07:51)
[2024-07-06] MEDS ORDERED: DEXAMETHASONE SOD INJ 4 MG/ML VIAL ONE (07:51)
[2024-07-06] MEDS ORDERED: MIDAZOLAM HCL 1 MG/ML 2ML VIAL ONE (07:52)
[2024-07-06] MEDS ORDERED: fentaNYL citrate PF 100 MCG/2 ML VIAL ONE (07:52)
--- NOTE | 2024-07-06 08:15 | History & Physical Bridge Note ---
Date of Service July 06, 2024 History & Physical Bridge Note I have examined the patient, reviewed the History & Physical and in the interval since the performance of the History & Physical I have noted the following changes of clinical significance: no changes noted
[2024-07-06] MEDS: GABAPENTIN 300 MG CAP PO SCH ×2 (08:24→17:15)
[2024-07-06] MEDS: ACETAMINOPHEN 500 MG TAB PO SCH (08:25)
[2024-07-06] MEDS: FAMOTIDINE 20 MG TAB PO SCH (08:25)
[2024-07-06] MEDS: LR 60ML/HR IV SCH (08:26)
[2024-07-06] MEDS: dexAMETHasone**PF** 10 MG/ML VIAL IV SCH (08:26)
[2024-07-06] MEDS: LACTATED RINGER'S 1,000 ML IV SCH (08:30)
[2024-07-06] MEDS ORDERED: ONDANSETRON INJ 2 MG/ML 2 ML VIAL IV PRN ×2 (08:49→11:49)
[2024-07-06] MEDS ORDERED: fentaNYL citrate PF 100 MCG/2 ML VIAL IV PRN (08:49)
[2024-07-06] MEDS ORDERED: ATROPINE SULFATE 0.1 MG/ML 10ML SYR IV PRN (08:49)
[2024-07-06] MEDS ORDERED: ePHEDrine sulfate 50 MG/ML AMP IV PRN (08:49)
[2024-07-06] MEDS: TRANEXAMIC ACID 1,000 MG **IV Pre-op IV SCH (09:02)
[2024-07-06] MEDS: ceFAZolin 2000MG 2,000 MG/15 ML SYR IV SCH ×2 (09:13→17:19)
[2024-07-06] MEDS ORDERED: ePHEDrine sulfate 50 MG/5 ML SYR ONE (09:35)
[2024-07-06] MEDS: ORTHO JOINT ANESTHETIC ONE (10:04)
[2024-07-06] MEDS: ROPIV 0.5% 246mg, Ketorolac 30mg, EPINEPHrine 0.5mg in NSS INFIL SCH (10:15)
[2024-07-06] MEDS: TRANEXAMIC ACID 1,000 MG **IV Intra-op IV SCH (10:20)
--- NOTE | 2024-07-06 10:31 | Operative Report ---
PG Post Operative Report Pre & Post Diagnosis Operation Date: 07/06/24 09:00 Pre-Op Diagnosis: Rotator cuff arthropathy of left shoulder Post-Op Diagnosis: Rotator cuff arthropathy of left shoulder I identified the patient and participated in the time-out.: Yes Procedure Operation Date: 07/06/24 09:00 Actual Procedures p Left Reverse Total Shoulder Arthroplasty(Left) - Renard Hoang DO Surgeon Renard Hoang DO Animal Trainer Supervisor None Estimated Blood Loss 150 Findings Consistent with Post-Op Diagnosis Specimens Left humeral head Description of Procedure Implants used: I used a Biomet Comprehensive reverse total shoulder arthroplasty system with a size 16 press fit micro humeral stem, a +3 offset humeral tray and a +3 retentive humeral bearing, a 25 mm baseplate with a 6.5 mm central screw and superior and inferior locking screws, and a size 40 mm eccentric glenosphere. Walter arrived at [facility] for the above procedure. He was seen in the preoperative holding area and the operative extremity was identified and signed. He was given a preoperative antibiotic, TXA, and an interscalene nerve block. He was taken back to the operating room, laid on table in supine position, and put under general anesthesia. He was then put into the beachchair position. The shoulder was then prepped and draped in sterile fashion. A timeout was done and the patient and the operative extremity was properly identified. A deltopectoral approach was used. Dissection was taken down through the fascia and the deltoid was retracted laterally and the conjoined tendon was retracted medially. The anterior shoulder was exposed. The biceps tendon was tenodesed from previous procedure. The subscapularis was then directly released off the lesser tuberosity with a peel technique. The inferior capsule was released and the humeral head was dislocated. A canal finding reamer was sent down the center of the humeral canal. Sequential reaming up to a size 16 reamer was done. Off that reamer, a proximal humeral resection guide was placed. The proximal humerus was resected at 135 of inclination and 25 of retroversion. Osteophytes were then removed and the glenoid was exposed. Time was spent doing a complete capsular and labral release. The glenoid guide was then placed in the inferior aspect of the glenoid. A 3.2 mm Steinmann pin was then placed into the glenoid vault at 10 of inclination. The glenoid baseplate was then reamed. The final size 25 mm baseplate was then impacted in the place. A 6.5 mm central screw was then placed followed by superior and inferior locking screws. A 40 mm eccentric glenosphere was then impacted into place. Surrounding soft tissues were then injected with 100 cc an orthopedic pain control cocktail. The proximal humerus was then exposed. Sequential broaching of the humerus up to a size 16 broach was done. Off that broach a +3 offset and +3 retentive humeral tray was trialed. The shoulder was then reduced, brought through a full range of motion, and felt to be stable. The shoulder was then dislocated and the broach was removed. The final size 16 micro press-fit humeral stem was then impacted into place. A +3 retentive humeral bearing was then snapped onto a +3 offset humeral tray. The humeral tray was then impacted onto the humeral stem. The shoulder was once again reduced, brought through a full range of motion, and felt to be stable. The subscapularis was poor quality and unable to be repaired. A dilute betadyne lavage was then done for 3 minutes. The joint was then irrigated with normal saline solution. Hemostasis was obtained. The interval was closed with 2-0 Vicryl suture. The skin was then closed with 2-0 Vicryl and zeb. A Silverlon dressing was placed and the arm was rested in a regular arm sling. He was then extubated and transferred to a hospital bed. He taken to the postanesthesia care unit in stable condition. He tolerated the procedure well. I attest to the content of the Intraoperative Record and any orders documented therein. Any exceptions are noted below.
--- NOTE | 2024-07-06 11:10 | XRay Report ---
XR shoulder LT min 2V routine CLINICAL HISTORY: Post shoulder surgery COMPARISON: MRI of the left shoulder February 27, 2024. Left shoulder radiographs June 16, 2024. FINDINGS: Alignment of the reverse total left shoulder arthroplasty is anatomic. There is no peripro sthetic fracture or unexpected radiopaque foreign body. There are skin zeb. IMPRESSION: Expected findings following total left shoulder arthroplasty. ACT 112: Negative or not required by law. Electronically signed by: Maco Richardson M.D. 07/06/2024 11:09 AM
--- NOTE | 2024-07-06 11:39 | Anesthesiology Progress Note ---
Date of Service July 06, 2024 Anesthesia Post Procedure Vital Signs Vital Signs: Temp Pulse Resp BP Pulse Ox O2 Del Method O2 Flow Rate 07/06/24 11:20 68 12 128/78 95 Room Air 07/06/24 11:10 97.7 F 71 14 134/78 95 Room Air 07/06/24 11:00 71 12 138/85 95 Room Air 07/06/24 10:50 73 22 147/79 H 98 Oxymask 8 07/06/24 10:40 97.7 F 78 16 154/91 H 99 Oxymask 8 07/06/24 08:06 97.7 F 63 16 155/81 H 98 Room Air Transfer of Care Handoff Completed per policy Notes Mental Status: alert / awake / arousable and participated in evaluation Patient Amnestic to Procedure: Yes Nausea / Vomiting: adequately controlled Pain: adequately controlled Airway Patency, RR, SpO2: stable & adequate BP & HR: stable & adequate Hydration State: stable & adequate Anesthetic Complications: no major complications apparent and Pt Satisfied with anesthetic care
[2024-07-06] MEDS ORDERED: oxyCODONE HCL IR 5 MG TAB (IMMEDIATE RELEASE) PO PRN (11:49)
[2024-07-06] MEDS ORDERED: FUROSEMIDE 20 MG TAB PO PRN (11:49)
[2024-07-06] MEDS ORDERED: METOCLOPRAMIDE HCL INJ 5 MG/ML 2 ML VIAL IV PRN (11:49)
[2024-07-06] MEDS ORDERED: POTASSIUM CHLORIDE CRTAB 20 MEQ TABCR PO PRN (11:49)
[2024-07-06] MEDS ORDERED: HYDROmorphone INJ 0.5 MG/0.5 ML SYR IV PRN (11:49)
[2024-07-06] MEDS ORDERED: NALOXONE HCL 0.4 MG/1 ML VIAL/CARP IV PRN (11:49)
[2024-07-06] MEDS ORDERED: bisacodyL 10 MG SUPP PR PRN (11:49)
[2024-07-06] MEDS ORDERED: MAGNESIUM HYDROXIDE SUSP 30 ML UDC PO PRN (11:49)
[2024-07-06] MEDS ORDERED: TRIAMCINOLONE ACET 0.1% CR 15 GM TUBE TOP PRN (11:49)
[2024-07-06] MEDS ORDERED: IBUPROFEN 200 MG TAB PO PRN (11:49)
[2024-07-06] MEDS: KETOROLAC TROMETHAMINE 15 MG/ML VIAL IV SCH (13:03)
[2024-07-06 14:05] VITALS: RESP 16
[2024-07-06 17:14] VITALS: O2SAT 96
[2024-07-06] MEDS: APIXABAN 5 MG TABLET PO SCH (17:14)
[2024-07-06] MEDS: amLODIPine BESYLATE 5 MG TAB PO SCH (17:14)
[2024-07-06] MEDS: TAMSULOSIN HCL 0.4 MG CAP PO SCH (17:15)
[2024-07-06] MEDS: SENNA 8.6 MG TAB PO SCH (20:26)
[2024-07-06] MEDS: DOCUSATE SODIUM 100 MG CAP PO SCH (20:26)
[2024-07-07 03:02] VITALS: TEMP 97.5
[2024-07-07 06:18] VITALS: BP 151/82
[2024-07-07 06:21] VITALS: PULSE 75
[2024-07-07] MEDS: dexAMETHasone 4 MG TAB PO SCH (06:22)
[2024-07-07] MEDS: CETIRIZINE HCL 10 MG TABLET PO SCH (06:23)
[2024-07-07] MEDS: LOSARTAN POTASSIUM 50 MG TAB PO SCH (06:24)
[2024-07-07] MEDS: MULTIVITAMIN TAB PO SCH (06:25)
[2024-07-07] MEDS: METOPROLOL SUCC 25MG EXT REL TAB PO SCH (06:25)
--- NOTE | 2024-07-07 07:41 | Orthopedic Progress Note ---
Date of Service July 07, 2024 Assessment & Plan (1) Status post reverse total replacement of left shoulder: Overall he is doing very well. He is not having much pain in the left shoulder. He will be seen by physical therapy today for ambulation and range of motion exercises. He can be discharged home later today. He will follow-up orthopedics in 2 weeks. Yash Watson was seen and examined at bedside this morning. Overall he is doing very well. He is not having much pain in the left shoulder. He has been up and ambulating into the hallways. He has no complaints.. Review of Systems All systems reviewed & are unremarkable except as noted in HPI & below. Physical Exam On physical exam of the left shoulder, the dressing is clean and dry. He is wearing his sling as instructed. He has motion of his hand and his wrist. He still some numbness in his thumb.. Results & Data Results & Data Laboratory Results . Diagnostic Findings Postoperative x-rays of the left shoulder show the prosthesis to be in anatomic alignment without any evidence of fracture complication, or loosening.. PG Care Time/CCT Total # of Minutes Spent Total Time Spent with Patient: Total time spent is greater than 50% in coordination of care (as documented) at patient's floor/unit and/or counseling patient: Coding Level of Care Code 95182 Post Operative Follow-Up Diagnoses Status post reverse total replacement of left shoulder Z96.612
--- NOTE | 2024-07-07 07:42 | Discharge Summary ---
Date of Service July 07, 2024 Principal Diagnosis Same as "Discharge Diagnosis" noted below under Discharge Instructions. Discharge Exam On physical exam of the left shoulder, the dressing is clean and dry. He is wearing his sling as instructed. He has motion of his hand and his wrist. He still some numbness in his thumb.. Discharge Data Procedures Performed Operation Date: 07/06/24 09:00 Actual Procedures p Left Reverse Total Shoulder Arthroplasty(Left) - Renard Hoang DO Ordered Studies 07/06/24 05:00 US - OR guided needle placemen Routine Hospital Course (1) Status post reverse total replacement of left shoulder: On July 06, 2024 Walter arrived at [facility] and underwent a left shoulder replacement without complication. He had a general anesthetic and a left interscalene nerve block. Postoperatively he was placed in a sling and transferred to the general orthopedic floors. His hospital course was uneventful. On postop day #1, his vital signs were stable and his pain was well-controlled. He was able to participate well with physical therapy doing ambulation and range of motion exercises. He was then discharged to home. He will follow-up with orthopedics in 2 weeks. PG Care Time/CCT Total # of Minutes Spent Total Time Spent with Patient: Total time spent is greater than 50% in coordination of care (as documented) at patient's floor/unit and/or counseling patient: Discharge Plan Discharge Items Patient Disposition: Home - Self-Care Reason For Visit: STATUS POST SHOULDER REPLACEMENT Discharge Diagnosis: Left reverse shoulder replacement Activity: Per Instructions section Non-emergency contact: Surgeon Call non-emergency contact if: your wound has increased redness and your wound has increased drainage Follow-up/Referrals: Az Bauer DO [Primary Care Provider] - Diet: Regular Addtl Attending Provider Instructions: Activity and Therapy Recommendations: * If you are using [facility] then therapy will be provided at your home until they feel you have accomplished all of your goals. * If you are using [facility] then Physical Therapy will be provided until they feel you are ready to start Outpatient Physical Therapy. * If you are not using home therapy then Outpatient Physical Therapy should st art about 3-5 days from your day of surgery. Therapy will last about 8-12 weeks * Wear your sling for 3 weeks, unless otherwise instructed. You may remove your sling to shower and to dress, but otherwise, you should be in your sling at all times, including while sleeping * The shoulder replacement is very stable and you can use your hand while in the sling * You were shown a series of exercises in the hospital. Do these exercises daily including the exercises you were shown in physical therapy. Medications: * Narcotic You will likely be sent home from the hospital with a prescription for the narcotic pain medication that worked best throughout your stay. * Cefadroxil -take the antibiotic twice a day for 10 days to help prevent infection. * Other medications may be prescribed for specific circumstances. If you have any questions, please call the office at . * Resume previous home medications unless otherwise instructed Dressing Care: Leave the Silverlon dressing in place for 7 days. After 7 days you may remove the dressing. If the incision is not draining then you may leave the zeb open to air. If there is a little bit of drainage or if the zeb are getting stuck on your clothing then cover the incision with a dry dressing. The zeb will be removed at your 2 week follow-up appointment. Showering: You may shower with the Silverlon dressing in place. Do not let the shower spray hit the dressing directly. Pat the Silverlon dressing dry. If the dressing becomes wet underneath, then simply remove the dressing. Keep the incision dry until you are 7 days out from the day of surgery. After 7 days you may remove the Silverlon dressing and shower with the zeb exposed. Let soapy water run over the zeb and pat them dry. Do not scrub or soak the incision. Diet: You may resume your previous diet. Things To Watch For: * Drainage from the incision site that occurs more than one week after your surgery. * Increased redness at the incision site. * Fever above 102 degrees Fahrenheit. * Unusual chest pain or shortness of breath. * Call [facility] at with any of the above problems Follow-Up Visit: Follow-up with Dr. Hoang's office 2-3 weeks after your day of surgery. We will remove your zeb and answer any questions. If you have any additional questions or concerns, Dr Hoang is usually in the office at the same time and will be available An appointment was probably scheduled when you signed-up for surgery in the office. If you have any questions call More detailed instructions as well as Frequently Asked Questions were provided in a folder by our office when you signed-up for surgery. Please review these instructions when you get home. If you have any further questions or concerns, please feel free to call the office at [phone] Pending Studies at Discharge: No Stand-Alone Forms: My [facility] myeasydocs, Smoking Cessation Medications and DC Order Prescriptions: New oxycodone 5 mg Tablet 5 mg PO Q4H PRN (Reason: pain) Qty: 30 0RF cefadroxil 500 mg capsule 500 mg PO BID 10 Days Qty: 20 0RF Continued amlodipine 5 mg tablet 5 mg PO HS Qty: 90 3RF Eliquis 5 mg tablet 5 mg PO BID Qty: 60 6RF furosemide [Lasix] 20 mg tablet 20 mg PO QAM PRN (Reason: Edema) Qty: 90 3RF tamsulosin 0.4 mg capsule 0.4 mg PO HS Qty: 90 3RF losartan 100 mg tablet 100 mg PO QAM Qty: 90 3RF gabapentin 300 mg capsule 300 mg PO BID Patient Comments: pt takes 2-3 times daily levocetirizine [Xyzal] 5 mg Tablet 5 mg PO QAM triamcinolone acetonide 0.1 % Cream 1 applic TOPICAL DAILY PRN (Reason: Rash) Move [facility] [employer] [facility] 750 mg-100 mg- 1.65 mg-108 mg Tablet 1 tab PO QAM metoprolol succinate 25 mg tablet extended release 24 hr 25 mg PO QAM potassium chloride 20 mEq tablet extended release 20 meq PO QAM PRN (Reason: Edema/Lasix) ibuprofen [Advil] 200 mg Tablet 200 mg PO Q6H PRN (Reason: Pain) Discharge Orders: Discharge Order (Routine); Ordered 07/07/24 Ordered By: Renard Hoang Admission Data Admit Date/Time: 07/06/24 10:35 Attending Provider: Renard Hoang Admit Provider: Renard Hoang Primary Care Provider: Az Bauer
[2024-07-07] MEDS ORDERED: NON-FORMULARY MEDICATION (Glucosam-Chond-Hyalu-Cf Borate [Move Free Joint Health] 750 mg-1 PO SCH (09:00)
== END 2024-07-07 10:50 | disposition home or self-care (01) ==
LOC: ASU 07:28 → 3E 07:28